=== PATIENT | female | born 1945 | race Caucasian/White ===

== ENCOUNTER 2018-02-05 06:36 | Observation (INO) ==
--- NOTE | 2018-02-05 07:15 | Emergency Department Note ---
Disposition Clinical Impression: Bronchitis, COPD exacerbation, Hypoxia Disposition: Admitted As Inpatient Condition: Fair Referrals: Ashly Kitchen DO [Primary Care Provider] - Forms: ED Satisfaction Letter Time of Disposition: 08:35 General Adult HPI - General Chief complaint: ED Upper Respiratory Infection Stated complaint: cough/sore throat Time Seen by Provider: 02/05/18 06:58 Source: patient Limitations: no limitations Nursing Notes Reviewed: Yes Vital Signs Reviewed: Yes - History of Present Illness HPI Narrative: 72-year-old female history of COPD and diabetes presents an emergency department for cough and sore throat. The symptoms started last night. She stated she was taken her nighttime pills when she coughed and one accidentally went up her nose. She was able to get this out. Since then she has noticed a scratchy voice. She checked her O2 and it was reportedly 65%. She does report a cough for the past few days as well. She denies any shortness of breath or chest pain at this time. She denies any fever or chills. On arrival here she was found to be hypoxic but after having her settle down she is had a good waveform 95%. She does not wear any home oxygen supplementation at home. She does report to some muscle aches. She denies any abdominal pain nausea or vomiting. History of cholecystectomy. Denies history of cardiac ischemic disease. She did have recent dental procedure in November for her bottom teeth. Otherwise unremarkable. Given some of her complaints will get a chest x -ray EKG basic labs with the troponin and check for influenza. Patient is in agreement with this plan. Pain Scale: 10 - Related Data Home Medications Medication Instructions Recorded Confirmed Amitriptyline [Elavil] 50 mg PO HS 10/13/15 10/13/15 Ammonium Lactate [Lac-Hydrin Five] 113 gm TP BID 10/13/15 10/13/15 Atorvastatin Calcium [Lipitor] 20 mg PO DAILY 10/13/15 10/13/15 Diclofenac Sodium [Voltaren] 50 mg PO BID 10/13/15 10/13/15 Ibuprofen [Motrin] 600 mg PO Q8HR PRN 10/13/15 10/13/15 Irbesartan [Avapro] 300 mg PO DAILY 10/13/15 10/13/15 Levothyroxine Sodium [Synthroid] 25 mcg PO DAILY 10/13/15 10/13/15 Metformin HCl [Fortamet] 500 mg PO BID 10/13/15 10/13/15 Methocarbamol [Robaxin] 500 mg PO Q8HR 10/13/15 10/13/15 Metoprolol [Lopressor] 50 mg PO BID 10/13/15 10/13/15 Montelukast [Singulair] 10 mg PO HS 10/13/15 10/13/15 Potassium Chloride [Klor-Con 10 meq PO DAILY 10/13/15 10/13/15 Sprinkle] Promethazine [Phenergan] 25 mg PO DAILY PRN 10/13/15 10/13/15 Sennosides [Senna] 8.6 mg PO DAILY PRN 10/13/15 10/13/15 Tramadol HCl [Tramadol HCl ER] 50 mg PO Q6H PRN 10/13/15 10/13/15 Venlafaxine HCl [Effexor Xr] 150 mg PO DAILY 10/13/15 10/13/15 amLODIPine [Norvasc] 5 mg PO DAILY 10/13/15 10/13/15 glipiZIDE [Glucotrol] 5 mg PO DAILY 10/13/15 10/13/15 Previous Rx's Medication Instructions Recorded Albuterol Sulfate [Albuterol 2 puff IH Q4HR #1 hfa.aer.ad 10/13/15 Inhaler] Lisinopril-HCTZ 10-12.5 [Prinzide 1 each PO DAILY #30 tablet 10/13/15 10-12.5] levoFLOXacin [Levaquin] 500 mg PO DAILY #5 tablet 10/13/15 predniSONE [PredniSONE] 10 mg PO DAILY #7 tablet 10/13/15 HYDROcodone/Acet 5/325 mg [[place] 1 tab PO Q6H PRN #12 tab 11/13/16 5-325 mg] Tizanidine HCl [Zanaflex] 4 mg PO TID #30 cap 11/13/16 predniSONE [PredniSONE] 20 mg PO TID #15 tablet 11/13/16 Amoxicillin 875 mg PO BID #14 tablet 11/30/17 HYDROcodone/Acet 5/325 mg [[place] 1 tab PO Q8HR PRN 2 Days #6 tab 11/30/17 5-325 mg] Tizanidine HCl 2 mg PO TID PRN #10 tablet 11/30/17 Allergies Allergy/AdvReac Type Severity Reaction Status Date / Time morphine Allergy Hives Verified 02/05/18 06:49 All systems ED: reviewed and negative except as stated. Constitutional: Denies: fever, chills ENT ED: Denies: congestion Cardiovascular: Denies: chest pain, dyspnea on exertion Respiratory: Reports: cough. Denies: dyspnea Gastrointestinal: Denies: abdominal pain, nausea, vomiting Genitourinary: Denies: urgency, dysuria Musculoskeletal: Reports: myalgia. Denies: back pain, neck pain Integumentary: Denies: rash, abrasion Neurological: Denies: headache, weakness Past Medical History - Past Medical History Attestation: Yes The following information was validated with the patient. Source: patient Medical history: Reports: diabetes, hypertension, other Surgical history: Reports: appendectomy, cholecystectomy, hysterectomy Psychiatric history: Reports: no psych history [employer] history: Reports: non-contributory - Social History Smoking Status: Never smoker Smokeless Tobacco Status: No Alcohol use: Reports: none Drug use: Reports: none Physical Exam - General Limitations: no limitations General appearance: alert, in no apparent distress - Head Head exam: atraumatic, normocephalic, normal inspection - Eye Eye exam: Present: normal appearance, PERRL, EOMI - ENT ENT exam: normal exam, normal oropharynx, mucous membranes moist - Expanded ENT Exam Nose exam: negative: rhinorrhea, sinus tenderness Mouth exam: Present: normal external inspection, tongue normal. Absent: tongue elevation, tounge swelling Teeth exam: Present: other (edentulous) Throat exam: Present: normal inspection. Absent: tonsillar erythema, tonsillar exudate, muffled voice - Neck Neck exam: Present: normal inspection, full ROM, trachea midline. Absent: tenderness, meningismus - Expanded Neck Exam Neck exam focused ED: Absent: midline tenderness - Chest Chest inspection: Present: normal inspection, symmetric chest wall rise. Absent : tenderness - Respiratory Respiratory exam: Present: normal lung sounds bilaterally, wheezes. Absent: respiratory distress - Expanded Respiratory Exam Location: decreased breath sounds: Lower - Cardiovascular Cardiovascular exam: Present: regular rate, normal rhythm, normal heart sounds - Abdominal Exam Abdominal exam: Present: soft, Non-Tender, normal bowel sounds, scar (RUQ from cholecystectomy). Absent: tenderness, distention, guarding, rebound, rigidity - Extremities Exam Extremities exam: Present: normal inspection, full ROM, normal capillary refill. Absent: tenderness, pedal edema - Back Exam Back exam: Present: normal inspection, full ROM. Absent: CVA tenderness (R), CVA tenderness (L) - Neurological Exam Neurological exam: Present: alert, oriented X3 - Psychiatric Psychiatric exam: Present: normal affect, normal mood - Skin Skin exam: Present: warm, dry, intact, normal color. Absent: rash, cyanosis, diaphoresis Course Course Narrative: Chest x-ray confirms bronchitis. She does have a leukocytosis of 18. She has maintained good oxygen saturation 91 to 93% on room air here in the department. Other labs or otherwise unremarkable, troponin <0.03. She is slightly hyperglycemic. We had the patient ambulate throughout the department and she maintained 91% however she states feeling woozy and a little winded. Given the symptoms patient will be admitted for hypoxia and COPD exacerbation. Will give her a dose of Solu-Medrol and start her on Levaquin. - Consultations Consultation #1: Spoke with on-call hospitalist minna Keen to admit for COPD exacerbation and hypoxia. No further orders at this time Time: 08:37 Vital Signs Temperature 100.2 F H 02/05/18 06:49 Pulse Rate 94 02/05/18 06:49 Respiratory Rate 16 02/05/18 06:49 Blood Pressure 170/101 02/05/18 06:49 O2 Sat by Pulse Oximetry 87 02/05/18 06:49 Temperature 100.2 F H 02/05/18 06:49 Pulse Rate 91 02/05/18 07:49 Respiratory Rate 15 02/05/18 07:49 Blood Pressure 132/107 02/05/18 07:55 O2 Sat by Pulse Oximetry 92 02/05/18 07:55 Oxygen Delivery Oxygen Delivery Room Air Medical Decision Making - MDM Narrative Medical decision making narrative: Patient was discussed with my attending physician who agrees with ED management and final disposition. They independently evaluated the patient. Please refer to their attestation to this encounter for additional information. This note was generated by [employer] voice recognition software and as a result grammatical or spelling errors may occur using this program. - Medical Records Medical records reviewed: Yes I reviewed the patient's medical records. - Lab Data Lab results reviewed: Yes I reviewed the patient's lab results. Result diagrams: 02/05/18 06:58 02/05/18 06:58 Lab Results 02/05/18 02/05/18 02/05/18 Range/Units 06:58 06:58 06:58 WBC 18.6 H (4.3-11.1) K/mcL RBC 4.97 (3.82-4.97) M/mcL Hgb 14.1 (11.5-15.4) g/dL Hct 42.7 (35.3-44.9) % MCV 85.9 (83.0-100.0) fL MCH 28.4 (28.0-33.3) pg MCHC 33.0 (31.6-35.5) g/dL RDW 13.7 (11.5-14.5) % Plt Count 276 (140-400) K/mcL MPV 10.3 (9.4-12.4) fL Immature Gran % 0.4 (0-4) % Seg Neutrophils % 82.1 % Lymphocytes % 7.2 % Monocytes % 7.5 % Eosinophils % 2.6 % Basophils % 0.2 % Neutrophils # 15.3 H (1.6-8.9) K/mcL Lymphocytes # 1.3 (0.6-4.6) K/mcL Monocytes # 1.4 H (0.0-1.3) K/mcL Eosinophils # 0.5 (0.0-0.6) K/mcL Basophils # 0.0 (0.0-0.2) K/mcL Sodium 135 L (136-145) mEq/L Potassium 4.0 (3.5-5.1) mEq/L Chloride 98 (98-107) mEq/L Carbon Dioxide 28 (23-29) mEq/L BUN 13 (8-23) mg/dL Creatinine 1.13 (0.60-1.20) mg/dL Est GFR ( Amer) 58 L (> 60) Est GFR (Non-Af Amer) 48 L (> 60) BUN/Creatinine Ratio 12 (6-26) Glucose 177 H (70-105) mg/dL Calculated Osmolality 284 (280-300) Calcium 10.3 (8.6-10.3) mg/dL Troponin I < 0.03 (< 0.04) ng/mL B-Natriuretic Peptide 217 H (Less than 100) pg/mL - Radiology Data Radiology results reviewed: Yes I reviewed the patient's radiology results. Chest X-Ray 02/05/18 07:16 IMPRESSION: Increased interstitial opacities and bronchial wall thickening compatible with bronchitis. D/ / Marco Murray MD / Marco Murray MD Interpreting Provider: Marco Murray MD - EKG Data EKG #1 EKG attestation: Yes I reviewed and interpreted this EKG. EKG results narrative: EKG performed 0657 normal sinus rhythm 89 bpm, normal axis, good R wave progression, nonspecific ST T-wave changes, intervals within normal limits. No acute ischemic changes. Attestation Statement - Attestation Attestation: I, Alverto Bauer DO, examined this patient [id number] and my medical decision-making was reviewed with Adonay Kaiser DO , Resident Physician. I agree with the documented findings, disposition and treatment plan as described except to the extent set forth below. Please see my progress notes for details.
[2018-02-05] MEDS ORDERED: Ipratropium/Albuterol Neb 3 ML IH ONE (07:16)
[2018-02-05 07:37] LABS: Basophils % 0.2 %; Eosinophils # 0.5 K/mcL (0.0-0.6); Eosinophils % 2.6 %; Hematocrit 42.7 % (35.3-44.9); Hemoglobin 14.1 g/dL (11.5-15.4); Immature Granulocytes % 0.4 % (0-4); Lymphocytes # 1.3 K/mcL (0.6-4.6); Lymphocytes % 7.2 %; Mean Corpuscular Hemoglobin 28.4 pg (28.0-33.3); Mean Corpuscular Volume 85.9 fL (83.0-100.0); Mean Platelet Volume 10.3 fL (9.4-12.4); Monocytes # 1.4 K/mcL (0.0-1.3); Monocytes % 7.5 %; Neutrophils # 15.3 K/mcL (1.6-8.9); Platelet Count 276 K/mcL (140-400); Red Blood Count 4.97 M/mcL (3.82-4.97); Red Cell Distribution Width 13.7 % (11.5-14.5); Segmented Neutrophils % 82.1 %
--- NOTE | 2018-02-05 07:39 | Emergency Department Note ---
Disposition Clinical Impression: Bronchitis, COPD exacerbation, Hypoxia Disposition: Admitted As Inpatient Condition: Fair Referrals: Ashly Kitchen DO [Primary Care Provider] - Forms: ED Satisfaction Letter Time of Disposition: 08:34 General Adult HPI - General Chief complaint: ED Upper Respiratory Infection Stated complaint: cough/sore throat Time Seen by Provider: 02/05/18 06:58 Source: patient Limitations: no limitations - History of Present Illness Pain Scale: 10 - Related Data Home Medications Medication Instructions Recorded Confirmed Amitriptyline [Elavil] 50 mg PO HS 10/13/15 10/13/15 Ammonium Lactate [Lac-Hydrin Five] 113 gm TP BID 10/13/15 10/13/15 Atorvastatin Calcium [Lipitor] 20 mg PO DAILY 10/13/15 10/13/15 Diclofenac Sodium [Voltaren] 50 mg PO BID 10/13/15 10/13/15 Ibuprofen [Motrin] 600 mg PO Q8HR PRN 10/13/15 10/13/15 Irbesartan [Avapro] 300 mg PO DAILY 10/13/15 10/13/15 Levothyroxine Sodium [Synthroid] 25 mcg PO DAILY 10/13/15 10/13/15 Metformin HCl [Fortamet] 500 mg PO BID 10/13/15 10/13/15 Methocarbamol [Robaxin] 500 mg PO Q8HR 10/13/15 10/13/15 Metoprolol [Lopressor] 50 mg PO BID 10/13/15 10/13/15 Montelukast [Singulair] 10 mg PO HS 10/13/15 10/13/15 Potassium Chloride [Klor-Con 10 meq PO DAILY 10/13/15 10/13/15 Sprinkle] Promethazine [Phenergan] 25 mg PO DAILY PRN 10/13/15 10/13/15 Sennosides [Senna] 8.6 mg PO DAILY PRN 10/13/15 10/13/15 Tramadol HCl [Tramadol HCl ER] 50 mg PO Q6H PRN 10/13/15 10/13/15 Venlafaxine HCl [Effexor Xr] 150 mg PO DAILY 10/13/15 10/13/15 amLODIPine [Norvasc] 5 mg PO DAILY 10/13/15 10/13/15 glipiZIDE [Glucotrol] 5 mg PO DAILY 10/13/15 10/13/15 Previous Rx's Medication Instructions Recorded Albuterol Sulfate [Albuterol 2 puff IH Q4HR #1 hfa.aer.ad 10/13/15 Inhaler] Lisinopril-HCTZ 10-12.5 [Prinzide 1 each PO DAILY #30 tablet 10/13/15 10-12.5] levoFLOXacin [Levaquin] 500 mg PO DAILY #5 tablet 10/13/15 predniSONE [PredniSONE] 10 mg PO DAILY #7 tablet 10/13/15 HYDROcodone/Acet 5/325 mg [[place] 1 tab PO Q6H PRN #12 tab 11/13/16 5-325 mg] Tizanidine HCl [Zanaflex] 4 mg PO TID #30 cap 11/13/16 predniSONE [PredniSONE] 20 mg PO TID #15 tablet 11/13/16 Amoxicillin 875 mg PO BID #14 tablet 11/30/17 HYDROcodone/Acet 5/325 mg [[place] 1 tab PO Q8HR PRN 2 Days #6 tab 11/30/17 5-325 mg] Tizanidine HCl 2 mg PO TID PRN #10 tablet 11/30/17 Allergies Allergy/AdvReac Type Severity Reaction Status Date / Time morphine Allergy Hives Verified 02/05/18 06:49 Constitutional: Denies: fever, chills ENT ED: Denies: congestion Cardiovascular: Denies: chest pain, dyspnea on exertion Respiratory: Reports: cough. Denies: dyspnea Gastrointestinal: Denies: abdominal pain, nausea, vomiting Genitourinary: Denies: urgency, dysuria Musculoskeletal: Reports: myalgia. Denies: back pain, neck pain Integumentary: Denies: rash, abrasion Neurological: Denies: headache, weakness Past Medical History - Past Medical History Medical history: Reports: diabetes, hypertension, other Surgical history: Reports: appendectomy, cholecystectomy, hysterectomy Psychiatric history: Reports: no psych history [employer] history: Reports: non-contributory - Social History Smoking Status: Never smoker Smokeless Tobacco Status: No Alcohol use: Reports: none Drug use: Reports: none Physical Exam - General Limitations: no limitations General appearance: alert, in no apparent distress Course Vital Signs Temperature 100.2 F H 02/05/18 06:49 Pulse Rate 94 02/05/18 06:49 Respiratory Rate 16 04/25/18 06:49 Blood Pressure 170/101 02/05/18 06:49 O2 Sat by Pulse Oximetry 87 02/05/18 06:49 Temperature 100.2 F H 02/05/18 06:49 Pulse Rate 91 02/05/18 07:49 Respiratory Rate 15 02/05/18 07:49 Blood Pressure 132/107 02/05/18 07:55 O2 Sat by Pulse Oximetry 92 02/05/18 07:55 Oxygen Delivery Oxygen Delivery Room Air Medical Decision Making - Lab Data Result diagrams: 02/05/18 06:58 02/05/18 06:58 Lab Results 02/05/18 02/05/18 02/05/18 Range/Units 06:58 06:58 06:58 WBC 18.6 H (4.3-11.1) K/mcL RBC 4.97 (3.82-4.97) M/mcL Hgb 14.1 (11.5-15.4) g/dL Hct 42.7 (35.3-44.9) % MCV 85.9 (83.0-100.0) fL MCH 28.4 (28.0-33.3) pg MCHC 33.0 (31.6-35.5) g/dL RDW 13.7 (11.5-14.5) % Plt Count 276 (140-400) K/mcL MPV 10.3 (9.4-12.4) fL Immature Gran % 0.4 (0-4) % Seg Neutrophils % 82.1 % Lymphocytes % 7.2 % Monocytes % 7.5 % Eosinophils % 2.6 % Basophils % 0.2 % Neutrophils # 15.3 H (1.6-8.9) K/mcL Lymphocytes # 1.3 (0.6-4.6) K/mcL Monocytes # 1.4 H (0.0-1.3) K/mcL Eosinophils # 0.5 (0.0-0.6) K/mcL Basophils # 0.0 (0.0-0.2) K/mcL Sodium 135 L (136-145) mEq/L Potassium 4.0 (3.5-5.1) mEq/L Chloride 98 (98-107) mEq/L Carbon Dioxide 28 (23-29) mEq/L BUN 13 (8-23) mg/dL Creatinine 1.13 (0.60-1.20) mg/dL Est GFR ( Amer) 58 L (> 60) Est GFR (Non-Af Amer) 48 L (> 60) BUN/Creatinine Ratio 12 (6-26) Glucose 177 H (70-105) mg/dL Calculated Osmolality 284 (280-300) Calcium 10.3 (8.6-10.3) mg/dL Troponin I < 0.03 (< 0.04) ng/mL B-Natriuretic Peptide 217 H (Less than 100) pg/mL Attestation Statement - Attestation Attestation: I, Alverto Bauer DO, examined this patient [id number] and my medical decision-making was reviewed with Adonay Kaiser DO , Resident Physician. I agree with the documented findings, disposition and treatment plan as described except to the extent set forth below. Please see my progress notes for details. 72-year-old female presents to emergency room with concern of sore throat and pain with swallowing after trying to take a pill last night. Patient was swallowing a medication. The medication got caught in Her throat and then when she coughed she felt to go up into her nose and it came out of her nostril. Patient denies any active chest pain shortness of breath headache vision changes nausea vomiting or diarrhea. Denies any fevers or chills. Patient otherwise is resting comfortably in the bed. Patient has known COPD but does not require any oxygen. She only uses breathing treatments and inhalers at home as she needs them. Patient denies any recent travel or illness. Denies any fevers or chills cough, congestion headache or vision changes home. She discloses that she would have never come in to the emergency room she did not have the sore throat after choking on the pill last night. Patient does not have any signs of stridor or trismus. She does not have any difficulty with swallowing. Her oropharynx is patent. Trachea is midline. Lungs are clear heart is regular. Abdomen is soft. She has no pitting edema or swelling. Patient's pulse ox is been 95% on room air with good waveform throughout the entire treatment course. Patient did disclose that she had a low pulse ox at home in the 60s with this is typical for her. She denies any respiratory distress or issues this time. Initial vital signs do show borderline temperature of 100.2. Her heart rate and respirations are normal. Blood pressure is elevated but otherwise stable. Patient will have influenza swab chest x-ray EKG labs including CBC chemistry troponin and BNP collected at this time. Patient does feel comfortable going home at this point considering she feels legates only the sore throat we will check for any other potential infectious etiology. Influenza swab is pending. Disposition pending the full workup and treatment course. Patient will be ambulated prior to going home. Clinically the patient does appear to be stable and in no apparent distress at this time. Disposition pending. See detailed documentation of the physical exam, medical intervention, medical decision-making and disposition the resident physician's note. No critical care applied his first treatment course this time. 0800 Patient's influenza swab is negative this time. She does have a leukocytosis. She also has confirmed bronchitis based on chest x-ray. Patient may have irritated the throat was no signs of pneumomediastinum or concern for esophageal rupture or tear. Patient has no crepitus or injury to the anterior chest wall she has no pain with swallowing at this point. Patient has been tolerating fluids without any difficulty. Patient is still requesting to be discharged home. We will ambulate around the emergency room at this time and then discuss disposition. 0830 Patient ambulate around the emergency room with a pulse ox of 91%. She was shaky and felt short of breath with the event. After this lengthy discussion was had about her concerns with her presentation despite being bronchitis with a mild COPD exacerbation. Patient will be admitted at this time for symptomatic control. She does have known bronchitis with an elevated white blood cell count and a borderline temperature. She does not meet sepsis criteria and has not required any fluid resuscitation this time. Patient will be admitted for definitive management. Antibiotics and blood cultures will be started at this point on a steroid resuscitation. Hospitalist nurse practitioner Darby Fiore reviewed the case and no other recommendations at this time.
[2018-02-05 07:50] LABS: BUN/Creatinine Ratio 12 (6-26); Blood Urea Nitrogen 13 mg/dL (8-23); Calcium 10.3 mg/dL (8.6-10.3); Carbon Dioxide 28 mEq/L (23-29); Chloride 98 mEq/L (98-107); Glucose 177 mg/dL (70-105); Osmolality,Calculated 284 (280-300); Sodium 135 mEq/L (136-145); eGFR For African Americans 58 (> 60); eGFR For Non-African Americans 48 (> 60)
[2018-02-05 07:51] LABS: Troponin I < 0.03 ng/mL (< 0.04)
[2018-02-05] MEDS ORDERED: methylPREDNISolone 125 MG/2 ML VIAL IVP ONE (08:28)
[2018-02-05] MEDS ORDERED: Levofloxacin 750 MG/150 ML 750 MG/150 ML BAG IVPB ONE (08:31)
[2018-02-05] MEDS ORDERED: hydrOXYzine pamoate 25 MG CAPSULE PO PRN (11:34)
[2018-02-05] MEDS ORDERED: D5% in Water 1,000 ML IVC PRN (11:37)
[2018-02-05] MEDS ORDERED: Dextrose Gel 15 GM/37.5 ML TUBE PO PRN ×2 (11:37)
[2018-02-05] MEDS ORDERED: *HR* Dextrose 50 % in Water (Syg) 50 ML SYRINGE IVP PRN (11:37)
[2018-02-05] MEDS ORDERED: Naloxone 0.4 MG/ML INJ IVP PRN (11:38)
[2018-02-05] MEDS ORDERED: traMADol 50 MG TABLET PO PRN (11:38)
[2018-02-05] MEDS ORDERED: Acetaminophen 325 MG TABLET PO PRN (11:38)
--- NOTE | 2018-02-05 11:48 | Internal Med History&Physical ---
<Darleen Arroyo - Last Filed: 02/05/18 12:18> Date of Encounter: 02/05/18 Time of Encounter: 11:43 Internal Medicine - H&P: HPI Admitted From: Home Plans for Post Hospital Care: Home History of present illness: 72-year-old female presents to emergency room with concern of sore throat and pain with swallowing after trying to take a pill last night. Patient was swallowing a medication. The medication got caught in Her throat and then when she coughed she felt to go up into her nose and it came out of her nostril. Patient denies any active chest pain shortness of breath headache vision changes nausea vomiting or diarrhea. Denies any fevers or chills. Patient otherwise is resting comfortably in the bed. Patient has known COPD but does not require any oxygen. She only uses breathing treatments and inhalers at home as she needs them. Patient denies any recent travel or illness. Denies any fevers or chills cough, congestion headache or vision changes home. She discloses that she would have never come in to the emergency room she did not have the sore throat after choking on the pill last night. Patient does not have any signs of stridor or trismus. She does not have any difficulty with swallowing. Her oropharynx is patent. Trachea is midline. Lungs are clear heart is regular. Abdomen is soft. She has no pitting edema or swelling. Patient's pulse ox is been 95% on room air with good waveform throughout the entire treatment course. Patient did disclose that she had a low pulse ox at home in the 60s with this is typical for her. She denies any respiratory distress or issues this time. Initial vital signs do show borderline temperature of 100.2. Her heart rate and respirations are normal. Blood pressure is elevated but otherwise stable. Patient will have influenza swab chest x-ray EKG labs including CBC chemistry troponin and BNP collected at this time. Patient does feel comfortable going home at this point considering she feels legates only the sore throat we will check for any other potential infectious etiology. At the ED, she was found to have temperature 100.2, EKG no acute changes, chest x-ray revealed possible bronchitis. Due to her severe respiratory symptoms, she will be admitted as observation for further management. Past Med Surg Social Fam HX - Past Medical History Medical history: diabetes, hypertension, other Psychiatric history: no psych history - Past Surgical History Surgical History: appendectomy, cholecystectomy, hysterectomy - Social History Smoking Status: Never smoker Smokeless Tobacco Status: No Alcohol use: none Drug use: none - Family History Mother Adopted: Yes Living Status: Father Adopted: Yes Living Status: Internal Medicine - H&P: Meds Albuterol Sulfate [Albuterol Inhaler] 2 puff IH Q4HR #1 hfa.aer.ad 10/13/15 [Rx] Amitriptyline [Elavil] 50 mg PO HS 10/13/15 [History] Ammonium Lactate [Lac-Hydrin Five] 113 gm TP BID 10/13/15 [History] Atorvastatin Calcium [Lipitor] 20 mg PO DAILY 10/13/15 [History] Irbesartan [Avapro] 300 mg PO DAILY 10/13/15 [History] Levothyroxine Sodium [Synthroid] 25 mcg PO DAILY 10/13/15 [History] Metoprolol [Lopressor] 50 mg PO BID 10/13/15 [History] Montelukast [Singulair] 10 mg PO HS 10/13/15 [History] Potassium Chloride [Klor-Con Sprinkle] 10 meq PO DAILY 10/13/15 [History] Promethazine [Phenergan] 25 mg PO DAILY PRN 10/13/15 [History] amLODIPine [Norvasc] 5 mg PO DAILY 10/13/15 [History] glipiZIDE [Glucotrol] 5 mg PO DAILY 10/13/15 [History] BuPROPion SR (12 HR) [Wellbutrin SR] 150 mg PO BID 02/05/18 [History] Omeprazole [PriLOSEC] 20 mg PO DAILY 02/05/18 [History] hydrOXYzine HCl [Hydroxyzine HCl] 25 mg PO HS PRN 02/05/18 [History] 3 Allergy/AdvReac Type Severity Reaction Status Date / Time morphine Allergy Hives Verified 02/05/18 06:49 All Systems PM: A 10-system review of systems was performed and is negative for pertinent findings except as documented above in the HPI. Review of systems: REVIEW OF SYSTEMS: CONSTITUTIONAL: No weight loss, fever, chills, weakness or fatigue. HEENT: Eyes: No visual loss, blurred vision, double vision or yellow sclerae. Ears, Nose, Throat: No hearing loss, sneezing, congestion, runny nose or sore throat. SKIN: No rash or itching. CARDIOVASCULAR: No chest pain, chest pressure or chest discomfort. No palpitations or edema. RESPIRATORY: No shortness of breath, cough or sputum. GASTROINTESTINAL: No anorexia, nausea, vomiting or diarrhea. No abdominal pain or blood. GENITOURINARY: No dysuria, urgency, or frequency. NEUROLOGICAL: No headache, dizziness, syncope, paralysis, ataxia, numbness or tingling in the extremities. No change in bowel or bladder control. MUSCULOSKELETAL: No muscle, back pain, joint pain or stiffness. HEMATOLOGIC: No anemia, bleeding or bruising. LYMPHATICS: No enlarged nodes. No history of splenectomy. PSYCHIATRIC: No history of depression or anxiety. ENDOCRINOLOGIC: No reports of sweating, cold or heat intolerance. No polyuria or polydipsia. - Constitutional Vitals: Temp Pulse Resp BP Pulse Ox 100.2 F H 92 15 163/112 90 02/05/18 06:49 02/05/18 11:14 02/05/18 11:14 02/05/18 11:14 02/05/18 11:14 General appearance: Present: A&O X 3 Exam: PHYSICAL EXAMINATION: GENERAL APPEARANCE: The patient is alert, oriented and in no acute distress. HEENT: Head is normocephalic. The sinuses are nontender. Pupils are equal and reactive. The nares are patent. Oropharynx clear without lesions. NECK: Supple without lymphadenopathy. HEART: Regular rate and rhythm. LUNGS: No crackles or wheezes are heard. ABDOMEN: Soft, nontender, nondistended with good bowel sounds heard. Inguinal area is normal. EXTREMITIES: Without cyanosis, clubbing or edema. NEUROLOGICAL: Gross nonfocal. SKIN: Warm and dry without any rash. Internal Med - H&P Results - Labs CBC & Chem 7: 02/05/18 06:58 02/05/18 06:58 - Assessment and plan (1) Bronchitis Current Visit: Yes Status: Acute Assessment and plan: - Temperature 100.2, Elevated WBC, Chest x-ray revealed acute bronchitis, were treated as acute bronchitis, possible pneumonia with IV Levaquin. - Blood culture and sputum culture ordered. (2) COPD exacerbation Current Visit: Yes Status: Acute Assessment and plan: Mild respiratory distress, she received 1 dose of Solu-Medrol at ED, we will continue oral prednisone, respiratory treatment as needed. (3) Diabetes mellitus Current Visit: No Status: Chronic Assessment and plan: - Her home medication, started insulin sliding scale of medium strength. Qualifiers: Diabetes mellitus type: type 2 Diabetes mellitus complication status: with kidney complications Diabetes mellitus complication detail: with chronic kidney disease Chronic kidney disease stage: stage 3 (moderate) Qualified Code(s): E11.22 - Type 2 diabetes mellitus with diabetic chronic kidney disease ; N18.3 - Chronic kidney disease, stage 3 (moderate); N18.3 - Chronic kidney disease, stage 3 (moderate); Z79.4 - senior living (current) use of insulin; Z79.4 - intermediate accountant (current) use of insulin; Z79.4 - senior living (current) use of insulin ; Z79.4 - intermediate accountant (current) use of insulin (4) Accelerated essential hypertension Current Visit: No Status: Chronic Assessment and plan: - BP controlled at this time, continue home medication. (5) Elevated brain natriuretic peptide (BNP) level Current Visit: Yes Status: Acute Assessment and plan: - No history of CHF, BNP 217, will order echocardiogram to rule out CHF/ pulmonary hypertension. - Time Spent With Patient Total time spent is greater than 50% in coordination of care (as documented) at patient's floor/unit and/or counseling patient: Greater than 35 minutes <Kirstin Keller - Last Filed: 02/05/18 12:32> Date of Encounter: 02/05/18 Internal Medicine - H&P: HPI History of present illness: Ms. Daniels is a 72 year old female All Systems PM: A 10-system review of systems was performed and is negative for pertinent findings except as documented above in the HPI. - Constitutional Vitals: Temp Pulse Resp BP Pulse Ox 98.4 F 81 18 150/123 89 02/05/18 12:03 02/05/18 12:03 02/05/18 12:03 02/05/18 12:03 02/05/18 12:03 Internal Med - H&P Results - Labs CBC & Chem 7: 02/05/18 06:58 02/05/18 06:58 - Attending Attestation Patient examined. Review of the note of mid-level provider and agreed with the plan of care. Patient has chronic cough or almost 1 month but recently it got worse and started fever and chills with fatigue and shortness of breath and patient checked her pulse ox and found to have oxygen saturation in higher 60s therefore decided to come to emergency room. Patient denies any history of CHF and no cardiac workup done in the past. BNP is raised therefore echocardiogram was done to rule out underlying pulmonary hypertension, cor pulmonale, CHF. ABG ordered. Patient denies recent travel or trauma. - Assessment and plan (1) COPD exacerbation Current Visit: Yes Status: Acute (2) Diabetes mellitus Current Visit: No Status: Chronic Qualifiers: Diabetes mellitus type: type 2 Diabetes mellitus complication status: with kidney complications Diabetes mellitus complication detail: with chronic kidney disease Chronic kidney disease stage: stage 3 (moderate) Qualified Code(s): E11.22 - Type 2 diabetes mellitus with diabetic chronic kidney disease ; N18.3 - Chronic kidney disease, stage 3 (moderate); N18.3 - Chronic kidney disease, stage 3 (moderate); Z79.4 - intermediate accountant (current) use of insulin; Z79.4 - intermediate accountant (current) use of insulin; Z79.4 - senior living (current) use of insulin ; Z79.4 - senior living (current) use of insulin (3) Accelerated essential hypertension Current Visit: No Status: Chronic (4) Bronchitis Current Visit: Yes Status: Acute (5) Elevated brain natriuretic peptide (BNP) level Current Visit: Yes Status: Acute - Time Spent With Patient Total time spent is greater than 50% in coordination of care (as documented) at patient's floor/unit and/or counseling patient:
[2018-02-05] MEDS ORDERED: Ipratropium/Albuterol Neb 3 ML IH PRN (11:56)
[2018-02-05] MEDS: Insulin LISPRO 300 UNITS/3 ML VIAL SQ SCH ×4 (13:26→21:20)
[2018-02-05] MEDS: *HR* Heparin 5,000 UNIT/ML VIAL SQ SCH ×2 (13:59→17:48)
[2018-02-05] MEDS: MethylPREDNISolone 40 MG/ML VIAL IVP SCH (17:44)
[2018-02-05] MEDS: BuPROPion SR (12 HR) 150 MG TABLET PO SCH (21:17)
[2018-02-05] MEDS: Ammonium Lactate 30 APPL/225 GM BOTTLE TP SCH (21:22)
[2018-02-06] MEDS: MethylPREDNISolone 40 MG/ML VIAL IVP SCH ×3 (00:58→16:46)
[2018-02-06 03:36] LABS: Basophils % 0.1 %; Hematocrit 38.9 % (35.3-44.9); Hemoglobin 13.2 g/dL (11.5-15.4); Lymphocytes # 0.9 K/mcL (0.6-4.6); Lymphocytes % 6.4 %; Mean Corpuscular HGB Conc 33.9 g/dL (31.6-35.5); Mean Corpuscular Hemoglobin 28.9 pg (28.0-33.3); Mean Corpuscular Volume 85.3 fL (83.0-100.0); Mean Platelet Volume 9.6 fL (9.4-12.4); Monocytes # 0.5 K/mcL (0.0-1.3); Monocytes % 3.5 %; Nucleated Red Blood Cells 0.1 /100 WBC (0); Platelet Count 269 K/mcL (140-400); Red Blood Count 4.56 M/mcL (3.82-4.97); Red Cell Distribution Width 13.9 % (11.5-14.5)
[2018-02-06 04:07] LABS: Calcium 9.8 mg/dL (8.6-10.3); Potassium 4.2 mEq/L (3.5-5.1)
[2018-02-06] MEDS: *HR* Heparin 5,000 UNIT/ML VIAL SQ SCH ×2 (06:30→16:45)
[2018-02-06] MEDS: Levothyroxine 25 MCG TABLET PO SCH (06:31)
[2018-02-06] MEDS: amLODIPine 5 MG TABLET PO SCH (08:55)
[2018-02-06] MEDS: BuPROPion SR (12 HR) 150 MG TABLET PO SCH ×2 (08:55→20:49)
[2018-02-06] MEDS: Levofloxacin 750 MG/150 ML 750 MG/150 ML BAG IVPB SCH (08:55)
[2018-02-06] MEDS: Insulin LISPRO 300 UNITS/3 ML VIAL SQ SCH ×4 (08:59→21:14)
[2018-02-06] MEDS ORDERED: predniSONE 20 MG TABLET PO SCH (09:00)
[2018-02-06] MEDS: Ammonium Lactate 30 APPL/225 GM BOTTLE TP SCH ×2 (09:14→20:49)
--- NOTE | 2018-02-06 19:37 | Internal Med Progress Note ---
Date of Encounter: 02/06/18 Time of Encounter: 11:00 - Assessment and plan (1) COPD exacerbation Current Visit: Yes Status: Acute Assessment and plan: Patient's symptoms improved on IV Solu-Medrol and IV Levaquin Continue current medical management (2) Bronchitis Current Visit: Yes Status: Acute Assessment and plan: Temperature 100.2, Elevated WBC, Chest x-ray revealed acute bronchitis on admission Continue IV Levaquin as above (3) Diabetes mellitus Current Visit: No Status: Chronic Assessment and plan: Continue insulin sliding scale of medium strength. Qualifiers: Diabetes mellitus type: type 2 Diabetes mellitus complication status: with kidney complications Diabetes mellitus complication detail: with chronic kidney disease Chronic kidney disease stage: stage 3 (moderate) Qualified Code(s): E11.22 - Type 2 diabetes mellitus with diabetic chronic kidney disease ; N18.3 - Chronic kidney disease, stage 3 (moderate); N18.3 - Chronic kidney disease, stage 3 (moderate) (4) Accelerated essential hypertension Current Visit: No Status: Chronic Assessment and plan: - BP controlled at this time, continue home medication. (5) DVT prophylaxis Current Visit: No Status: Acute Assessment and plan: Subcutaneous heparin - Time Spent With Patient Total time spent is greater than 50% in coordination of care (as documented) at patient's floor/unit and/or counseling patient: - Subjective Interval history: Patient made it for bronchitis and COPD exacerbation but in no acute respiratory distress on room air this morning - Constitutional Vitals: Temp Pulse Resp BP Pulse Ox 98.8 F 88 14 178/86 93 02/06/18 18:53 02/06/18 18:53 02/06/18 18:53 02/06/18 18:53 02/06/18 18:53 General appearance: Present: A&O X 3, no acute distress - Respiratory Respiratory exam: Present: CTAB. Absent: accessory muscle use, rales, rhonchi, wheezes - Cardiovascular Cardiovascular exam: Present: RRR, +S1, +S2. Absent: diastolic murmur, gallop, rubs, systolic murmur Internal Medicine: Result - Labs CBC & Chem 7: 02/06/18 03:25 02/06/18 03:25 Labs: Short CBC 02/06/18 Range/Units 03:25 WBC 13.5 H (4.3-11.1) K/mcL Hgb 13.2 (11.5-15.4) g/dL Hct 38.9 (35.3-44.9) % Plt Count 269 (140-400) K/mcL Neutrophils # 12.0 H (1.6-8.9) K/mcL BMP 02/06/18 03:25 Sodium 135 L Potassium 4.2 Chloride 102 Carbon Dioxide 25 BUN 21 Creatinine 1.20 Glucose 255 H Calcium 9.8 - Impressions Impressions Echocardiogram 02/05/18 11:36 Impressions: LVEF 70%. Normal LV chamber size and function. Mild concentric left ventricular hypertrophy. Mild left ventricular diastolic dysfunction. Normal right ventricular structure and function. No evidence of pulmonary hypertension. No significant valvular dysfunction. Left Ventricular Wall Motion: Rest Echo Findings All wall segments showed normal motion. Findings: Study Quality * Technically adequate exam. ECG Findings * Normal sinus rhythm. Left Ventricle * LVEF 70%. * Normal LV chamber size and function. * Mild concentric left ventricular hypertrophy. * Mild left ventricular diastolic dysfunction. Right Ventricle * Normal right ventricular structure and function. Left Atrium * Mild to moderately dilated left atrium. Right Atrium * Normal right atrial size. Aortic Valve * Trileaflet aortic valve with normal function. * No aortic regurgitation. * No aortic stenosis. Mitral Valve * Mild mitral annular calcification. * No mitral regurgitation. * No mitral stenosis. Tricuspid Valve * Normal tricuspid valve structure and function. * Trace tricuspid regurgitation. * No evidence of pulmonary hypertension. Pulmonic Valve * Normal pulmonic valve structure and function. * No pulmonic regurgitation. Aorta * Normally sized aortic root. Pericardium * The pericardium appears normal. IVC * Normal IVC dimensions and inspiratory collapse. Pulmonary Artery * Normal visualized portions of the main pulmonary artery. Consult Discharge Plan - Plan Referrals: Ashly Kitchen DO [Primary Care Provider] -
[2018-02-06] MEDS: Miconazole 2% cream 118 GM TUBE TP SCH (22:58)
[2018-02-07] MEDS: MethylPREDNISolone 40 MG/ML VIAL IVP SCH ×3 (00:26→16:17)
[2018-02-07] MEDS: *HR* Heparin 5,000 UNIT/ML VIAL SQ SCH ×2 (05:30→16:17)
[2018-02-07] MEDS: Levothyroxine 25 MCG TABLET PO SCH (05:30)
[2018-02-07] MEDS: Insulin LISPRO 300 UNITS/3 ML VIAL SQ SCH ×4 (07:39→22:12)
[2018-02-07] MEDS: Ammonium Lactate 30 APPL/225 GM BOTTLE TP SCH ×2 (07:40→22:16)
[2018-02-07] MEDS: Miconazole 2% cream 118 GM TUBE TP SCH ×3 (07:40→22:16)
[2018-02-07] MEDS: Levofloxacin 750 MG/150 ML 750 MG/150 ML BAG IVPB SCH (07:40)
[2018-02-07] MEDS: amLODIPine 5 MG TABLET PO SCH (07:41)
[2018-02-07] MEDS: BuPROPion SR (12 HR) 150 MG TABLET PO SCH ×2 (07:42→22:15)
[2018-02-07 11:04] LABS: Calcium 9.4 mg/dL (8.6-10.3)
[2018-02-07 11:12] LABS: Basophils % 0.2 %; Hematocrit 38.4 % (35.3-44.9); Hemoglobin 12.6 g/dL (11.5-15.4); Immature Granulocytes % 1.1 % (0-4); Lymphocytes # 1.1 K/mcL (0.6-4.6); Lymphocytes % 7.4 %; Mean Corpuscular HGB Conc 32.8 g/dL (31.6-35.5); Mean Corpuscular Volume 85.3 fL (83.0-100.0); Mean Platelet Volume 10.2 fL (9.4-12.4); Monocytes # 0.7 K/mcL (0.0-1.3); Monocytes % 4.5 %; Neutrophils # 13.3 K/mcL (1.6-8.9); Platelet Count 302 K/mcL (140-400); Red Cell Distribution Width 14.4 % (11.5-14.5); Segmented Neutrophils % 86.8 %
[2018-02-07] MEDS: GuaiFENesin/Dextromethorphan TABLET PO SCH ×2 (12:43→22:15)
--- NOTE | 2018-02-07 17:24 | Internal Med Progress Note ---
Date of Encounter: 02/07/18 Time of Encounter: 10:00 - Assessment and plan (1) Bronchitis Current Visit: Yes Status: Acute Assessment and plan: Patient afebrile but with continued leukocytosis and with no improvement and nonproductive cough Continue IV Levaquin and have added Mucinex (2) COPD exacerbation Current Visit: Yes Status: Acute Assessment and plan: Secondary to the above Will discontinue IV Solu-Medrol and start patient on oral prednisone Continue IV Levaquin as above (3) Diabetes mellitus Current Visit: No Status: Chronic Assessment and plan: Continue insulin sliding scale of medium strength. Qualifiers: Diabetes mellitus type: type 2 Diabetes mellitus complication status: with kidney complications Diabetes mellitus complication detail: with chronic kidney disease Chronic kidney disease stage: stage 3 (moderate) Qualified Code(s): E11.22 - Type 2 diabetes mellitus with diabetic chronic kidney disease ; N18.3 - Chronic kidney disease, stage 3 (moderate); N18.3 - Chronic kidney disease, stage 3 (moderate) (4) Accelerated essential hypertension Current Visit: No Status: Chronic Assessment and plan: - BP controlled at this time, continue home medication. (5) DVT prophylaxis Current Visit: No Status: Acute Assessment and plan: Subcutaneous heparin - Time Spent With Patient Total time spent is greater than 50% in coordination of care (as documented) at patient's floor/unit and/or counseling patient: - Subjective Interval history: Patient does not feel much better this morning with continued nonproductive cough - Constitutional Vitals: Temp Pulse Resp BP Pulse Ox 97.9 F 89 18 170/94 96 02/07/18 15:45 02/07/18 15:45 02/07/18 16:22 02/07/18 15:45 02/07/18 16:22 General appearance: Present: A&O X 3, no acute distress - Respiratory Respiratory exam: Present: CTAB. Absent: accessory muscle use, rales, rhonchi, wheezes - Cardiovascular Cardiovascular exam: Present: RRR, +S1, +S2. Absent: diastolic murmur, gallop, rubs, systolic murmur Internal Medicine: Result - Labs CBC & Chem 7: 02/07/18 10:34 02/07/18 10:34 Labs: Short CBC 02/07/18 Range/Units 10:34 WBC 15.3 H (4.3-11.1) K/mcL Hgb 12.6 (11.5-15.4) g/dL Hct 38.4 (35.3-44.9) % Plt Count 302 (140-400) K/mcL Neutrophils # 13.3 H (1.6-8.9) K/mcL BMP 02/07/18 10:34 Sodium 136 Potassium 4.0 Chloride 104 Carbon Dioxide 23 BUN 26 H Creatinine 1.39 H Glucose 278 H Calcium 9.4 Consult Discharge Plan - Plan Referrals: Ashly Kitchen DO [Primary Care Provider] -
--- NOTE | 2018-02-07 19:18 | Electrocardiograph Report ---
[place] [id number] Test Date: 2018-02-05 Pat Name: Belinda Daniels Department: 103 Room: [facility] Gender: F [employer]: Tal : 1945 Requested By: Adonay Kaiser Order Number: [id number] Reading MD: Shital Posey Measurements Intervals Maxwell Rate: 89 P: 19 NM: 173 QRS: -3 QRSD: 89 T: 73 QT: 346 QTc: 392 Interpretive Statements SINUS RHYTHM LEFT VENTRICULAR HYPERTROPHY AND ST-T CHANGE [VOLTAGE CRITERIA PLUS ST/T ABNORMALITY] Electronically Signed On 02-07-2018 19:16:19 EDT by Shital Posey
[2018-02-08] MEDS: *HR* Heparin 5,000 UNIT/ML VIAL SQ SCH (05:28)
[2018-02-08] MEDS: Levothyroxine 25 MCG TABLET PO SCH (05:28)
[2018-02-08] MEDS: Ammonium Lactate 30 APPL/225 GM BOTTLE TP SCH (07:56)
[2018-02-08] MEDS: amLODIPine 5 MG TABLET PO SCH (07:56)
[2018-02-08] MEDS: BuPROPion SR (12 HR) 150 MG TABLET PO SCH (07:56)
[2018-02-08] MEDS: GuaiFENesin/Dextromethorphan TABLET PO SCH (07:56)
[2018-02-08] MEDS: Insulin LISPRO 300 UNITS/3 ML VIAL SQ SCH ×2 (07:57→12:01)
[2018-02-08] MEDS: Miconazole 2% cream 118 GM TUBE TP SCH (07:57)
[2018-02-08] MEDS ORDERED: predniSONE 20 MG TABLET PO SCH (09:00)
[2018-02-08 09:19] LABS: Basophils # 0.1 K/mcL (0.0-0.2); Basophils % 0.4 %; Hematocrit 40.2 % (35.3-44.9); Hemoglobin 13.1 g/dL (11.5-15.4); Immature Granulocytes % 1.8 % (0-4); Lymphocytes % 21.3 %; Mean Corpuscular HGB Conc 32.6 g/dL (31.6-35.5); Mean Corpuscular Volume 85.9 fL (83.0-100.0); Mean Platelet Volume 9.8 fL (9.4-12.4); Monocytes # 1.1 K/mcL (0.0-1.3); Monocytes % 7.6 %; Neutrophils # 9.7 K/mcL (1.6-8.9); Platelet Count 311 K/mcL (140-400); Red Blood Count 4.68 M/mcL (3.82-4.97); Red Cell Distribution Width 14.5 % (11.5-14.5); Segmented Neutrophils % 68.9 %
[2018-02-08 09:41] LABS: BUN/Creatinine Ratio 21 (6-26); Blood Urea Nitrogen 23 mg/dL (8-23); Calcium 9.2 mg/dL (8.6-10.3); Carbon Dioxide 24 mEq/L (23-29); Chloride 105 mEq/L (98-107); Glucose 199 mg/dL (70-105); Osmolality,Calculated 293 (280-300); Potassium 3.2 mEq/L (3.5-5.1); Sodium 137 mEq/L (136-145); eGFR For African Americans > 60 (> 60); eGFR For Non-African Americans 51 (> 60)
[2018-02-08 11:38] VITALS: BP 110/47
--- NOTE | 2018-02-08 12:59 | Discharge Summary ---
- NOTES TO OUTPATIENT PROVIDER Notes to Outpatient Provider: none Date of Encounter: 02/08/18 Time of Encounter: 11:00 - Discharge Diagnosis (1) Bronchitis Priority: Primary Status: Acute (2) COPD exacerbation Priority: Primary Status: Acute (3) Diabetes mellitus Priority: Secondary Status: Chronic Qualifiers: Diabetes mellitus type: type 2 Diabetes mellitus complication status: with kidney complications Diabetes mellitus complication detail: with chronic kidney disease Chronic kidney disease stage: unspecified stage Qualified Code(s): E11.22 - Type 2 diabetes mellitus with diabetic chronic kidney disease ; Z79.4 - watermelon harvesting supervisor (current) use of insulin; Z79.4 - snf (current) use of insulin; Z79.4 - snf (current) use of insulin; Z79.4 - snf ( current) use of insulin (4) Accelerated essential hypertension Priority: Secondary Status: Chronic Hospital course: Patient is a 72-year-old female with past medical history significant for diabetes and hypertension who presented to the ER on 02/05/18 due to sore throat and difficulty swallowing medication. Patient reported that while swallowing medication, it got stuck in her throat and when she coughed, it went through her nose and out her nostril. Patient was concerned and decided to come to the ER for evaluation. In the ER, patient was found to have a temperature of 100.2 and chest x-ray revealed suspicion for bronchitis. She was admitted to medical surgical floor for management of COPD exacerbation secondary to bronchitis. During patients hospital stay her symptoms improved with treatment on IV Levaquin and IV Solu-Medrol. Patient will be discharged to continue a 5 day course of prednisone and Levaquin. She will follow up with her primary care provider. - Time Spent with Patient Total time spent providing and/or coordinating discharge services: Less than 30 minutes - Discharge Medications Prescriptions: Levofloxacin [Levaquin] 750 mg PO DAILY #5 tablet Miconazole 2% cream [Remedy Antifungal] 1 appl TP TID #1 tube predniSONE [PredniSONE] 40 mg PO DAILY #10 tablet Home Medications: Albuterol Sulfate [Albuterol Inhaler] 2 puff IH Q4HR #1 hfa.aer.ad 10/13/15 [Rx] Amitriptyline [Elavil] 50 mg PO HS 10/13/15 [History] Ammonium Lactate [Lac-Hydrin Five] 113 gm TP BID 10/13/15 [History] Atorvastatin Calcium [Lipitor] 20 mg PO DAILY 10/13/15 [History] Irbesartan [Avapro] 300 mg PO DAILY 10/13/15 [History] Levothyroxine Sodium [Synthroid] 25 mcg PO DAILY 10/13/15 [History] Metoprolol [Lopressor] 50 mg PO BID 10/13/15 [History] Montelukast [Singulair] 10 mg PO HS 10/13/15 [History] Potassium Chloride [Klor-Con Sprinkle] 10 meq PO DAILY 10/13/15 [History] Promethazine [Phenergan] 25 mg PO DAILY PRN 10/13/15 [History] amLODIPine [Norvasc] 5 mg PO DAILY 10/13/15 [History] glipiZIDE [Glucotrol] 5 mg PO DAILY 10/13/15 [History] BuPROPion SR (12 HR) [Wellbutrin SR] 150 mg PO BID 02/05/18 [History] Omeprazole [PriLOSEC] 20 mg PO DAILY 02/05/18 [History] hydrOXYzine HCl [Hydroxyzine HCl] 25 mg PO HS PRN 02/05/18 [History] Levofloxacin [Levaquin] 750 mg PO DAILY #5 tablet 02/08/18 [Rx] Miconazole 2% cream [Remedy Antifungal] 1 appl TP TID #1 tube 02/08/18 [Rx] predniSONE [PredniSONE] 40 mg PO DAILY #10 tablet 02/08/18 [Rx] Allergies/Adverse Reactions: 3 Allergy/AdvReac Type Severity Reaction Status Date / Time morphine Allergy Hives Verified 02/05/18 06:49 Date of admission: 02/05/18 11:28 Primary care physician: Vance Styles - Constitutional Vitals: Temp Pulse Resp BP Pulse Ox 98.3 F 74 16 110/47 96 02/08/18 11:37 02/08/18 11:37 02/08/18 11:57 02/08/18 11:37 02/08/18 11:57 General appearance: Present: A&O X 3, no acute distress - Respiratory Respiratory exam: Present: CTAB. Absent: accessory muscle use, rales, rhonchi, wheezes - Cardiovascular Cardiovascular exam: Present: RRR, +S1, +S2. Absent: diastolic murmur, gallop, rubs, systolic murmur - Patient Status Disposition: Home, Self-Care Condition: Fair - Discharge Instructions Instructions: Acute Bronchitis (DC), Chronic Obstructive Pulmonary Disease (DC) Follow Up With: Ashly Kitchen DO [Primary Care Provider] -
[2018-02-09] MEDS ORDERED: Levofloxacin 750 MG/150 ML 750 MG/150 ML BAG IVPB SCH (09:00)
== END 2018-02-08 14:35 | disposition home or self-care (01) ==
LOC: EMEROO 06:36 → 2SOUTHHOLD 06:36 → SUATTDRO 11:28 → 2SOUTHHOLD 11:34 → 3NENU 02-06 18:33
PROVIDERS: ADMIT Registered Nurse; ATTEND Hospitalist

== ENCOUNTER 2021-05-28 22:08 | Inpatient (IN) ==
[2021-05-28 22:58] LABS: Basophils % 0.1 %; Hemoglobin 11.8 g/dL (11.5-15.4); Immature Granulocytes % 0.6 % (0-4); Lymphocytes # 0.5 K/mcL (0.6-4.6); Lymphocytes % 7.2 %; Mean Corpuscular HGB Conc 32.8 g/dL (31.6-35.5); Mean Corpuscular Volume 79.5 fL (83.0-100.0); Mean Platelet Volume 10.3 fL (9.4-12.4); Monocytes # 0.4 K/mcL (0.0-1.3); Neutrophils # 6.1 K/mcL (1.6-8.9); Platelet Count 206 K/mcL (140-400); Red Blood Count 4.53 M/mcL (3.82-4.97); Segmented Neutrophils % 86.1 %; White Blood Count 7.1 K/mcL (4.3-11.1)
[2021-05-28 23:24] LABS: BUN/Creatinine Ratio 12 (6-26); Blood Urea Nitrogen 19 mg/dL (8-23); Calcium 9.5 mg/dL (8.6-10.3); Carbon Dioxide 19 mEq/L (23-29); Chloride 104 mEq/L (98-107); Glucose 179 mg/dL (70-105); Osmolality,Calculated 285 (280-300); Potassium 3.4 mEq/L (3.5-5.1); Sodium 134 mEq/L (136-145); eGFR For African Americans 38 (> 60); eGFR For Non-African Americans 32 (> 60)
[2021-05-28 23:25] LABS: Troponin I < 0.03 ng/mL (< 0.04)
[2021-05-28] MEDS ORDERED: Vancomycin 1,500 MG/265 ML IV.SOLN IVPB ONE (23:57)
[2021-05-28] MEDS ORDERED: Piperacillin/Tazobactam 3.375 GM in 0.9 % Sodium Chloride Mini Bag 100 ML IVPB ONE (23:57)
[2021-05-28] MEDS ORDERED: Azithromycin 500 MG in 0.9 % Sodium Chloride 250 ML IVPB ONE (23:57)
[2021-05-29 00:42] LABS: Bacteria,Urine Few per hpf (None-Few); Bilirubin,Urine Negative (Negative); Blood,Urine Moderate (Negative); Clarity,Urine Clear (Clear); Color,Urine Yellow (Yellow); Glucose,Urine (UA) Normal (Normal); Ketones,Urine Negative (Negative); Leukocyte Esterase,Urine Negative (Negative); Mucus,Urine Few per lpf (None-Few); Nitrite,Urine Negative (Negative); Protein,Urine >=600 mg/dL (Neg-Trace); RBC,Urine 0-3 per hpf (0-3); Specific Gravity,Urine 1.027 (1.010-1.025); Squamous Epithelial Cell,Urine Few per hpf (None-Few); Urobilinogen,Urine Normal (Normal)
[2021-05-29 01:17] LABS: Adenovirus Not Detected (Not Detect); Coronavirus 229E Not Detected (Not Detect); Coronavirus HKU1 Not Detected (Not Detect); Coronavirus NL63 Not Detected (Not Detect); Coronavirus OC43 Not Detected (Not Detect)
[2021-05-29 01:18] LABS: Human Metapneumovirus Not Detected (Not Detect); Human Rhinovirus/Enterovirus Not Detected (Not Detect); Influenza A Subtype 2009 H1 Not Detected (Not Detect); SARS-CoV-2 DETECTED (Not Detect)
[2021-05-29 01:19] LABS: Bordetella Pertussis Not Detected (Not Detect); Chlamydophila pneumoniae Not Detected (Not Detect); Influenza B Not Detected (Not Detect); Mycoplasma pneumoniae Not Detected (Not Detect); Parainfluenza Virus 1 Not Detected (Not Detect); Parainfluenza Virus 2 Not Detected (Not Detect); Parainfluenza Virus 3 Not Detected (Not Detect); Parainfluenza Virus 4 Not Detected (Not Detect); Respiratory Syncytial Virus Not Detected (Not Detect)
[2021-05-29] MEDS ORDERED: Melatonin 3 MG TABLET PO PRN (01:58)
[2021-05-29] MEDS ORDERED: Naloxone 0.4 MG/ML INJ IVP PRN (01:58)
[2021-05-29] MEDS ORDERED: Ondansetron 4 MG/2 ML VIAL IVP PRN (01:58)
[2021-05-29] MEDS ORDERED: *HR* Dextrose 50 % in Water (Vial) 50 ML VIAL IVP PRN (02:02)
[2021-05-29] MEDS ORDERED: D5% in Water 1,000 ML IVC PRN (02:02)
[2021-05-29] MEDS ORDERED: Dextrose Gel 15 GM/37.5 ML TUBE PO PRN ×2 (02:02)
[2021-05-29] MEDS ORDERED: Ipratropium 1 PUFF INHALER IH PRN (02:30)
[2021-05-29] MEDS: *HR* Enoxaparin 30 MG/0.3 ML SYRINGE SQ SCH ×2 (04:23→06:20)
[2021-05-29 04:39] LABS: Hematocrit 34.2 % (35.3-44.9); Hemoglobin 11.2 g/dL (11.5-15.4); Mean Corpuscular HGB Conc 32.7 g/dL (31.6-35.5); Mean Corpuscular Hemoglobin 25.8 pg (28.0-33.3); Mean Corpuscular Volume 78.8 fL (83.0-100.0); Mean Platelet Volume 10.3 fL (9.4-12.4); Platelet Count 242 K/mcL (140-400); Red Blood Count 4.34 M/mcL (3.82-4.97)
[2021-05-29 04:46] LABS: Calcium 8.9 mg/dL (8.6-10.3); Potassium 3.3 mEq/L (3.5-5.1)
[2021-05-29 04:47] LABS: D-Dimer 789 ng/mLFEU (0-500)
[2021-05-29 04:55] LABS: Fibrinogen 683 mg/dL (169-393)
[2021-05-29] MEDS: Insulin LISPRO 300 UNITS/3 ML VIAL SUBQ SCH ×3 (06:42→17:39)
[2021-05-29] MEDS ORDERED: levoFLOXacin 500 MG/100 ML 500 MG/100 ML BAG IVPB SCH (08:00)
[2021-05-29] MEDS: BuPROPion SR (12 HR) 150 MG TABLET PO SCH (20:54)
[2021-05-30] MEDS: Insulin LISPRO 300 UNITS/3 ML VIAL SUBQ SCH ×4 (00:19→18:25)
[2021-05-30 04:56] LABS: Acinetobacter baumannii by PCR Not Detected (Not Detect); Candida albicans by PCR Not Detected (Not Detect); Candida glabrata by PCR Not Detected (Not Detect); Candida krusei by PCR Not Detected (Not Detect); Candida parapsilosis by PCR Not Detected (Not Detect); Candida tropicalis by PCR Not Detected (Not Detect); Enterobacter cloacae Cmplx PCR Not Detected (Not Detect); Enterobacteriaceae by PCR Not Detected (Not Detect); Enterococcus by PCR Not Detected (Not Detect); Escherichia coli by PCR Not Detected (Not Detect); Klebsiella oxytoca by PCR Not Detected (Not Detect); Klebsiella pneumoniae by PCR Not Detected (Not Detect); Proteus by PCR Not Detected (Not Detect); Pseudomonas aeruginosa by PCR Not Detected (Not Detect); Serratia marcescens by PCR Not Detected (Not Detect); Staphylococcus aureus by PCR Not Detected (Not Detect); Staphylococcus by PCR DETECTED (Not Detect); Streptococcus agalactiae(B)PCR Not Detected (Not Detect); Streptococcus by PCR Not Detected (Not Detect); Streptococcus pneumoniae PCR Not Detected (Not Detect); Streptococcus pyogenes (A) PCR Not Detected (Not Detect); mecA Methicillin-Resist Gene DETECTED (Not Detect)
[2021-05-30] MEDS: Levothyroxine 25 MCG TABLET PO SCH (05:51)
[2021-05-30] MEDS: *HR* Enoxaparin 40 MG/0.4 ML SYRINGE SQ SCH (05:51)
[2021-05-30] MEDS: amLODIPine 5 MG TABLET PO SCH (08:26)
[2021-05-30] MEDS: BuPROPion SR (12 HR) 150 MG TABLET PO SCH ×2 (08:26→20:03)
[2021-05-30] MEDS: Metoprolol XL (24 HR) Succ 50 MG TAB.ER.24H PO SCH (08:27)
[2021-05-30] MEDS: Ipratropium 1 PUFF INHALER IH SCH ×2 (15:25→20:10)
[2021-05-30] MEDS ORDERED: Ipratropium 1 PUFF INHALER IH SCH (16:00)
[2021-05-31] MEDS: Insulin LISPRO 300 UNITS/3 ML VIAL SUBQ SCH ×4 (00:01→16:13)
[2021-05-31] MEDS: Ipratropium 1 PUFF INHALER IH SCH ×7 (00:10→22:58)
[2021-05-31 03:14] LABS: Albumin 3.5 g/dL (3.5-5.7); Bilirubin,Direct 0.1 mg/dL (0.0-0.2); Bilirubin,Indirect 0.3 mg/dL (0.0-1.0); Bilirubin,Total 0.4 mg/dL (0.3-1.0); Calcium 10.1 mg/dL (8.6-10.3); Globulin 3.4 g/dL (2.4-3.5); Potassium 4.6 mEq/L (3.5-5.1); Total Protein 6.9 g/dL (6.4-8.9)
[2021-05-31] MEDS: *HR* Enoxaparin 40 MG/0.4 ML SYRINGE SQ SCH (04:49)
[2021-05-31 05:51] LABS: Basophils % 0.3 %; Hematocrit 35.2 % (35.3-44.9); Hemoglobin 11.5 g/dL (11.5-15.4); Immature Granulocytes % 1.7 % (0-4); Lymphocytes # 0.9 K/mcL (0.6-4.6); Lymphocytes % 7.9 %; Mean Corpuscular HGB Conc 32.7 g/dL (31.6-35.5); Mean Corpuscular Volume 79.5 fL (83.0-100.0); Mean Platelet Volume 9.7 fL (9.4-12.4); Monocytes # 0.8 K/mcL (0.0-1.3); Monocytes % 7.4 %; Neutrophils # 9.4 K/mcL (1.6-8.9); Platelet Count 378 K/mcL (140-400); Red Blood Count 4.43 M/mcL (3.82-4.97); Red Cell Distribution Width 14.5 % (11.5-14.5); Segmented Neutrophils % 82.7 %; White Blood Count 11.4 K/mcL (4.3-11.1)
[2021-05-31] MEDS: Levothyroxine 25 MCG TABLET PO SCH (06:03)
[2021-05-31] MEDS ORDERED: *HR* Labetalol 20 MG/4 ML SYRINGE IVP ONE (06:10)
[2021-05-31] MEDS: levoFLOXacin 750 MG/150 ML 750 MG/150 ML BAG IVPB SCH (07:55)
[2021-05-31] MEDS: amLODIPine 5 MG TABLET PO SCH ×3 (07:57→09:42)
[2021-05-31] MEDS: Metoprolol XL (24 HR) Succ 50 MG TAB.ER.24H PO SCH (07:57)
[2021-05-31] MEDS: BuPROPion SR (12 HR) 150 MG TABLET PO SCH ×2 (07:57→21:29)
[2021-06-01] MEDS: Ipratropium 1 PUFF INHALER IH SCH ×6 (03:45→23:33)
[2021-06-01] MEDS ORDERED: *HR* Enoxaparin 30 MG/0.3 ML SYRINGE SQ SCH (06:00)
[2021-06-01] MEDS: Metoprolol XL (24 HR) Succ 50 MG TAB.ER.24H PO SCH (06:05)
[2021-06-01] MEDS: amLODIPine 5 MG TABLET PO SCH (06:05)
[2021-06-01 06:24] LABS: Calcium 9.8 mg/dL (8.6-10.3); Potassium 4.3 mEq/L (3.5-5.1)
[2021-06-01 06:57] LABS: Basophils # 0.1 K/mcL (0.0-0.2); Basophils % 0.5 %; Eosinophils % 0.1 %; Hematocrit 36.1 % (35.3-44.9); Immature Granulocytes % 2.6 % (0-4); Lymphocytes # 1.1 K/mcL (0.6-4.6); Lymphocytes % 10.1 %; Mean Corpuscular HGB Conc 33.2 g/dL (31.6-35.5); Mean Corpuscular Hemoglobin 26.2 pg (28.0-33.3); Mean Corpuscular Volume 78.8 fL (83.0-100.0); Mean Platelet Volume 10.1 fL (9.4-12.4); Monocytes # 1.1 K/mcL (0.0-1.3); Monocytes % 10.2 %; Neutrophils # 8.3 K/mcL (1.6-8.9); Platelet Count 402 K/mcL (140-400); Red Blood Count 4.58 M/mcL (3.82-4.97); Red Cell Distribution Width 14.5 % (11.5-14.5); Segmented Neutrophils % 76.5 %; White Blood Count 10.8 K/mcL (4.3-11.1)
[2021-06-01] MEDS: Levothyroxine 25 MCG TABLET PO SCH (08:00)
[2021-06-01] MEDS: Insulin LISPRO 300 UNITS/3 ML VIAL SUBQ SCH ×3 (08:01→17:19)
[2021-06-01] MEDS: BuPROPion SR (12 HR) 150 MG TABLET PO SCH ×2 (08:02→20:57)
[2021-06-01] MEDS ORDERED: Dexamethasone Sodium Phos/PF 10 MG/ML VIAL IVP ONE (15:31)
[2021-06-01] MEDS: carvediloL 6.25 MG TABLET PO SCH (17:19)
[2021-06-02] MEDS: Ipratropium 1 PUFF INHALER IH SCH ×6 (04:09→23:30)
[2021-06-02] MEDS: *HR* Enoxaparin 40 MG/0.4 ML SYRINGE SQ SCH (05:43)
[2021-06-02] MEDS: Levothyroxine 25 MCG TABLET PO SCH (05:43)
[2021-06-02 06:07] LABS: Basophils # 0.1 K/mcL (0.0-0.2); Basophils % 0.7 %; Eosinophils # 0.1 K/mcL (0.0-0.6); Eosinophils % 0.6 %; Hematocrit 37.8 % (35.3-44.9); Hemoglobin 12.3 g/dL (11.5-15.4); Immature Granulocytes % 4.3 % (0-4); Lymphocytes # 0.8 K/mcL (0.6-4.6); Lymphocytes % 6.4 %; Mean Corpuscular HGB Conc 32.5 g/dL (31.6-35.5); Mean Corpuscular Hemoglobin 25.8 pg (28.0-33.3); Mean Corpuscular Volume 79.4 fL (83.0-100.0); Mean Platelet Volume 9.4 fL (9.4-12.4); Monocytes # 0.6 K/mcL (0.0-1.3); Monocytes % 5.4 %; Neutrophils # 9.8 K/mcL (1.6-8.9); Platelet Count 464 K/mcL (140-400); Red Blood Count 4.76 M/mcL (3.82-4.97); Red Cell Distribution Width 14.6 % (11.5-14.5); Segmented Neutrophils % 82.6 %; White Blood Count 11.9 K/mcL (4.3-11.1)
[2021-06-02 06:34] LABS: Potassium 4.3 mEq/L (3.5-5.1)
[2021-06-02] MEDS: BuPROPion SR (12 HR) 150 MG TABLET PO SCH ×2 (08:03→20:18)
[2021-06-02] MEDS: amLODIPine 5 MG TABLET PO SCH (08:04)
[2021-06-02] MEDS: carvediloL 6.25 MG TABLET PO SCH ×2 (08:04→16:17)
[2021-06-02] MEDS: Insulin LISPRO 300 UNITS/3 ML VIAL SUBQ SCH ×3 (08:05→16:17)
[2021-06-02] MEDS: levoFLOXacin 750 MG/150 ML 750 MG/150 ML BAG IVPB SCH (17:22)
[2021-06-03] MEDS: Ipratropium 1 PUFF INHALER IH SCH ×6 (04:44→23:50)
[2021-06-03] MEDS: Levothyroxine 25 MCG TABLET PO SCH (05:31)
[2021-06-03] MEDS: *HR* Enoxaparin 40 MG/0.4 ML SYRINGE SQ SCH (05:31)
[2021-06-03] MEDS: carvediloL 6.25 MG TABLET PO SCH ×2 (10:32→17:15)
[2021-06-03] MEDS: amLODIPine 5 MG TABLET PO SCH (10:32)
[2021-06-03] MEDS: BuPROPion SR (12 HR) 150 MG TABLET PO SCH ×2 (10:32→21:58)
[2021-06-03] MEDS: Insulin LISPRO 300 UNITS/3 ML VIAL SUBQ SCH ×3 (10:39→17:15)
[2021-06-03] MEDS: Magic Mouthwash 10 ML UD Cup PO SCH ×2 (13:05→17:16)
[2021-06-04] MEDS: Ipratropium 1 PUFF INHALER IH SCH ×6 (04:40→23:59)
[2021-06-04] MEDS: Levothyroxine 25 MCG TABLET PO SCH (04:53)
[2021-06-04] MEDS: *HR* Enoxaparin 40 MG/0.4 ML SYRINGE SQ SCH (04:53)
[2021-06-04 05:45] LABS: Hematocrit 36.9 % (35.3-44.9); Mean Corpuscular HGB Conc 32.5 g/dL (31.6-35.5); Mean Corpuscular Hemoglobin 25.7 pg (28.0-33.3); Mean Platelet Volume 9.2 fL (9.4-12.4); Platelet Count 474 K/mcL (140-400); Red Blood Count 4.67 M/mcL (3.82-4.97); Red Cell Distribution Width 14.5 % (11.5-14.5)
[2021-06-04 05:51] LABS: White Blood Count 19.5 K/mcL (4.3-11.1)
[2021-06-04 06:05] LABS: Potassium 4.3 mEq/L (3.5-5.1)
[2021-06-04 06:07] LABS: Lymphocytes # 0.4 K/mcL (0.6-4.6); Monocytes # 1.6 K/mcL (0.0-1.3); Neutrophils # 17.6 K/mcL (1.6-8.9)
[2021-06-04] MEDS: Magic Mouthwash 10 ML UD Cup PO SCH ×3 (07:45→17:39)
[2021-06-04] MEDS: levoFLOXacin 750 MG/150 ML 750 MG/150 ML BAG IVPB SCH (08:31)
[2021-06-04] MEDS: amLODIPine 5 MG TABLET PO SCH (08:34)
[2021-06-04] MEDS: Insulin LISPRO 300 UNITS/3 ML VIAL SUBQ SCH ×3 (08:34→17:39)
[2021-06-04] MEDS: carvediloL 6.25 MG TABLET PO SCH ×2 (08:34→17:39)
[2021-06-04] MEDS: BuPROPion SR (12 HR) 150 MG TABLET PO SCH ×2 (08:34→20:59)
[2021-06-05] MEDS: Ipratropium 1 PUFF INHALER IH SCH ×5 (03:54→20:43)
[2021-06-05] MEDS ORDERED: *HR* Enoxaparin 30 MG/0.3 ML SYRINGE SQ SCH (06:00)
[2021-06-05] MEDS: Levothyroxine 25 MCG TABLET PO SCH (06:05)
[2021-06-05 06:46] LABS: Basophils # 0.1 K/mcL (0.0-0.2); Basophils % 0.3 %; Eosinophils % 0.1 %; Hematocrit 37.4 % (35.3-44.9); Hemoglobin 12.2 g/dL (11.5-15.4); Immature Granulocytes % 5.1 % (0-4); Lymphocytes # 0.6 K/mcL (0.6-4.6); Lymphocytes % 3.7 %; Mean Corpuscular HGB Conc 32.6 g/dL (31.6-35.5); Mean Corpuscular Hemoglobin 25.8 pg (28.0-33.3); Mean Corpuscular Volume 79.2 fL (83.0-100.0); Mean Platelet Volume 9.8 fL (9.4-12.4); Monocytes % 7.8 %; Neutrophils # 14.3 K/mcL (1.6-8.9); Platelet Count 410 K/mcL (140-400); Red Blood Count 4.72 M/mcL (3.82-4.97); Red Cell Distribution Width 14.5 % (11.5-14.5); White Blood Count 17.2 K/mcL (4.3-11.1)
[2021-06-05 06:50] LABS: Monocytes # 1.3 K/mcL (0.0-1.3)
[2021-06-05 07:04] LABS: Platelet Estimate Normal (Normal)
[2021-06-05 07:18] LABS: Potassium 3.5 mEq/L (3.5-5.1)
[2021-06-05] MEDS: Insulin LISPRO 300 UNITS/3 ML VIAL SUBQ SCH ×3 (09:14→17:14)
[2021-06-05] MEDS: carvediloL 6.25 MG TABLET PO SCH ×2 (09:15→17:13)
[2021-06-05] MEDS: BuPROPion SR (12 HR) 150 MG TABLET PO SCH ×2 (09:16→20:03)
[2021-06-05] MEDS: amLODIPine 5 MG TABLET PO SCH (09:16)
[2021-06-05] MEDS: Magic Mouthwash 10 ML UD Cup PO SCH ×3 (09:21→17:13)
[2021-06-05 09:48] LABS: Calcium 7.2 mg/dL (8.6-10.3)
[2021-06-05] MEDS ORDERED: Gabapentin 100 MG CAPSULE PO SCH (21:00)
[2021-06-06] MEDS: Ipratropium 1 PUFF INHALER IH SCH ×6 (00:06→20:23)
[2021-06-06 03:42] LABS: Basophils % 0.3 %; Hematocrit 33.1 % (35.3-44.9); Immature Granulocytes % 5.5 % (0-4); Lymphocytes # 0.6 K/mcL (0.6-4.6); Lymphocytes % 4.2 %; Mean Corpuscular HGB Conc 33.2 g/dL (31.6-35.5); Mean Corpuscular Hemoglobin 26.4 pg (28.0-33.3); Mean Corpuscular Volume 79.4 fL (83.0-100.0); Mean Platelet Volume 9.6 fL (9.4-12.4); Monocytes # 0.8 K/mcL (0.0-1.3); Monocytes % 5.8 %; Neutrophils # 12.1 K/mcL (1.6-8.9); Platelet Count 335 K/mcL (140-400); Red Blood Count 4.17 M/mcL (3.82-4.97); Red Cell Distribution Width 14.3 % (11.5-14.5); Segmented Neutrophils % 84.2 %; White Blood Count 14.4 K/mcL (4.3-11.1)
[2021-06-06 04:11] LABS: Calcium 8.8 mg/dL (8.6-10.3); Potassium 4.5 mEq/L (3.5-5.1)
[2021-06-06] MEDS: Levothyroxine 25 MCG TABLET PO SCH (05:42)
[2021-06-06] MEDS: *HR* Enoxaparin 40 MG/0.4 ML SYRINGE SQ SCH (05:42)
[2021-06-06] MEDS: Insulin LISPRO 300 UNITS/3 ML VIAL SUBQ SCH ×3 (08:39→17:36)
[2021-06-06] MEDS: Magic Mouthwash 10 ML UD Cup PO SCH ×3 (08:40→17:39)
[2021-06-06] MEDS: carvediloL 6.25 MG TABLET PO SCH ×2 (08:41→17:36)
[2021-06-06] MEDS: amLODIPine 5 MG TABLET PO SCH (08:41)
[2021-06-06] MEDS: BuPROPion SR (12 HR) 150 MG TABLET PO SCH ×2 (08:42→21:22)
[2021-06-06] MEDS: Dexamethasone Sodium Phos/PF 10 MG/ML VIAL IVP SCH (08:43)
[2021-06-06] MEDS: Gabapentin 100 MG CAPSULE PO SCH ×2 (12:24→21:22)
[2021-06-07] MEDS: Ipratropium 1 PUFF INHALER IH SCH ×7 (00:39→23:16)
[2021-06-07] MEDS: *HR* Enoxaparin 40 MG/0.4 ML SYRINGE SQ SCH (05:30)
[2021-06-07] MEDS: Levothyroxine 25 MCG TABLET PO SCH (05:31)
[2021-06-07] MEDS: Insulin LISPRO 300 UNITS/3 ML VIAL SUBQ SCH ×3 (08:51→16:35)
[2021-06-07] MEDS: Dexamethasone Sodium Phos/PF 10 MG/ML VIAL IVP SCH (08:52)
[2021-06-07] MEDS: carvediloL 6.25 MG TABLET PO SCH ×2 (08:55→16:36)
[2021-06-07] MEDS: Gabapentin 100 MG CAPSULE PO SCH ×2 (08:55→20:22)
[2021-06-07] MEDS: amLODIPine 5 MG TABLET PO SCH (08:55)
[2021-06-07] MEDS: BuPROPion SR (12 HR) 150 MG TABLET PO SCH ×2 (08:56→20:22)
[2021-06-07] MEDS: Magic Mouthwash 10 ML UD Cup PO SCH ×3 (09:18→16:37)
[2021-06-07 09:47] LABS: Basophils # 0.1 K/mcL (0.0-0.2); Basophils % 0.3 %; Hematocrit 39.9 % (35.3-44.9); Immature Granulocytes % 2.3 % (0-4); Lymphocytes # 1.4 K/mcL (0.6-4.6); Lymphocytes % 6.5 %; Mean Corpuscular HGB Conc 32.8 g/dL (31.6-35.5); Mean Corpuscular Hemoglobin 26.2 pg (28.0-33.3); Mean Corpuscular Volume 79.8 fL (83.0-100.0); Mean Platelet Volume 9.9 fL (9.4-12.4); Monocytes # 1.6 K/mcL (0.0-1.3); Monocytes % 7.2 %; Neutrophils # 18.2 K/mcL (1.6-8.9); Platelet Count 365 K/mcL (140-400); Red Cell Distribution Width 14.4 % (11.5-14.5); Segmented Neutrophils % 83.7 %
[2021-06-07 09:48] LABS: Hemoglobin 13.1 g/dL (11.5-15.4); White Blood Count 21.7 K/mcL (4.3-11.1)
[2021-06-07 10:03] LABS: Potassium 4.3 mEq/L (3.5-5.1)
[2021-06-07] MEDS: Furosemide 40 MG TABLET PO SCH (12:59)
[2021-06-08] MEDS: Ipratropium 1 PUFF INHALER IH SCH ×6 (03:56→23:14)
[2021-06-08] MEDS: Levothyroxine 25 MCG TABLET PO SCH (05:16)
[2021-06-08] MEDS: *HR* Enoxaparin 40 MG/0.4 ML SYRINGE SQ SCH (05:16)
[2021-06-08] MEDS: Insulin LISPRO 300 UNITS/3 ML VIAL SUBQ SCH ×3 (08:00→17:41)
[2021-06-08] MEDS: Magic Mouthwash 10 ML UD Cup PO SCH ×3 (10:47→17:42)
[2021-06-08] MEDS: amLODIPine 5 MG TABLET PO SCH (10:47)
[2021-06-08] MEDS: carvediloL 6.25 MG TABLET PO SCH ×2 (10:48→17:42)
[2021-06-08] MEDS: Gabapentin 100 MG CAPSULE PO SCH ×2 (10:48→22:31)
[2021-06-08] MEDS: Furosemide 40 MG TABLET PO SCH (10:48)
[2021-06-08] MEDS: BuPROPion SR (12 HR) 150 MG TABLET PO SCH ×2 (10:48→22:31)
[2021-06-08 12:13] LABS: Hematocrit 38.4 % (35.3-44.9); Hemoglobin 12.4 g/dL (11.5-15.4); Mean Corpuscular HGB Conc 32.3 g/dL (31.6-35.5); Mean Corpuscular Hemoglobin 25.7 pg (28.0-33.3); Mean Corpuscular Volume 79.7 fL (83.0-100.0); Mean Platelet Volume 9.7 fL (9.4-12.4); Platelet Count 273 K/mcL (140-400); Red Blood Count 4.82 M/mcL (3.82-4.97); White Blood Count 19.7 K/mcL (4.3-11.1)
[2021-06-08 12:15] LABS: Calcium 8.6 mg/dL (8.6-10.3); Potassium 4.1 mEq/L (3.5-5.1)
[2021-06-09 00:42] VITALS: TEMP 97.9
[2021-06-09] MEDS: Ipratropium 1 PUFF INHALER IH SCH ×4 (04:20→15:36)
[2021-06-09 05:04] VITALS: PULSE 69
[2021-06-09] MEDS: Levothyroxine 25 MCG TABLET PO SCH (05:14)
[2021-06-09] MEDS: *HR* Enoxaparin 40 MG/0.4 ML SYRINGE SQ SCH (05:14)
[2021-06-09 06:21] LABS: Hematocrit 36.4 % (35.3-44.9); Hemoglobin 11.6 g/dL (11.5-15.4); Mean Corpuscular HGB Conc 31.9 g/dL (31.6-35.5); Mean Corpuscular Hemoglobin 25.7 pg (28.0-33.3); Mean Corpuscular Volume 80.7 fL (83.0-100.0); Mean Platelet Volume 10.1 fL (9.4-12.4); Platelet Count 244 K/mcL (140-400); Red Blood Count 4.51 M/mcL (3.82-4.97); Red Cell Distribution Width 14.2 % (11.5-14.5); White Blood Count 18.8 K/mcL (4.3-11.1)
[2021-06-09 06:47] LABS: Calcium 8.3 mg/dL (8.6-10.3); Potassium 4.2 mEq/L (3.5-5.1)
[2021-06-09] MEDS ORDERED: Furosemide 40 MG TABLET PO SCH (09:00)
[2021-06-09] MEDS: Gabapentin 100 MG CAPSULE PO SCH (09:43)
[2021-06-09] MEDS: carvediloL 6.25 MG TABLET PO SCH (09:43)
[2021-06-09] MEDS: BuPROPion SR (12 HR) 150 MG TABLET PO SCH (09:43)
[2021-06-09] MEDS: Magic Mouthwash 10 ML UD Cup PO SCH ×3 (09:44→16:51)
[2021-06-09] MEDS: Insulin LISPRO 300 UNITS/3 ML VIAL SUBQ SCH ×3 (09:44→16:51)
[2021-06-09] MEDS: amLODIPine 5 MG TABLET PO SCH (09:44)
[2021-06-09 14:40] VITALS: BP 120/68
[2021-06-09] MEDS ORDERED: carvediloL 6.25 MG TABLET PO SCH ×2 (17:00)
[2021-06-09 17:17] VITALS: O2SAT 92
== END 2021-06-09 19:01 | disposition other institution (70) | DRG 871 ==
LOC: 2NENU 22:08 → EMEROOARM 22:08 → OBSVTOIN 05-29 00:49 → SUATTDRO 05-29 00:49 → 2NENU 05-29 01:22
PROVIDERS: ADMIT Student in an Organized Health Care Education/Training Program; ATTEND Internal Medicine

== ENCOUNTER 2021-08-12 12:49 | Inpatient (IN) ==
[2021-08-12] MEDS ORDERED: Acetaminophen 325 MG TABLET PO ONE (14:08)
[2021-08-12 14:42] LABS: Basophils % 0.4 %; Eosinophils # 0.2 K/mcL (0.0-0.6); Eosinophils % 2.9 %; Hematocrit 38.8 % (35.3-44.9); Hemoglobin 12.2 g/dL (11.5-15.4); Immature Granulocytes % 0.1 % (0-4); Lymphocytes # 1.3 K/mcL (0.6-4.6); Lymphocytes % 16.7 %; Mean Corpuscular HGB Conc 31.4 g/dL (31.6-35.5); Mean Corpuscular Volume 85.8 fL (83.0-100.0); Monocytes # 0.8 K/mcL (0.0-1.3); Monocytes % 10.6 %; Neutrophils # 5.2 K/mcL (1.6-8.9); Platelet Count 201 K/mcL (140-400); Red Blood Count 4.52 M/mcL (3.82-4.97); Red Cell Distribution Width 14.3 % (11.5-14.5); Segmented Neutrophils % 69.3 %; White Blood Count 7.6 K/mcL (4.3-11.1)
[2021-08-12 14:53] LABS: INR 1.2
[2021-08-12 15:00] LABS: Alanine Aminotransferase 7 Units/L (7-52); Albumin 3.8 g/dL (3.5-5.7); Albumin/Globulin Ratio 1.4 (1.1-2.2); Alkaline Phosphatase 74 Units/L (34-104); Aspartate Amino Transferase 10 Units/L (13-39); BUN/Creatinine Ratio 13 (6-26); Bilirubin,Total 0.6 mg/dL (0.3-1.0); Blood Urea Nitrogen 13 mg/dL (8-23); Calcium 9.9 mg/dL (8.6-10.3); Carbon Dioxide 29 mEq/L (23-29); Chloride 105 mEq/L (98-107); Globulin 2.8 g/dL (2.4-3.5); Glucose 137 mg/dL (70-105); Osmolality,Calculated 296 (280-300); Potassium 3.9 mEq/L (3.5-5.1); Sodium 142 mEq/L (136-145); Total Protein 6.6 g/dL (6.4-8.9); eGFR For African Americans > 60 (> 60); eGFR For Non-African Americans 53 (> 60)
[2021-08-12 15:01] LABS: Troponin I < 0.03 ng/mL (< 0.04)
[2021-08-12] MEDS ORDERED: *HR* Labetalol 20 MG/4 ML SYRINGE IVP ONE ×2 (15:11→22:04)
[2021-08-12] MEDS ORDERED: Naloxone 0.4 MG/ML INJ IVP PRN (17:52)
[2021-08-12] MEDS ORDERED: D5% in Water 1,000 ML IVC PRN (17:55)
[2021-08-12] MEDS ORDERED: *HR* Dextrose 50 % in Water (Syg) 50 ML SYRINGE IVP PRN (17:55)
[2021-08-12] MEDS ORDERED: Dextrose Gel 15 GM/37.5 ML TUBE PO PRN ×2 (17:55)
[2021-08-12] MEDS ORDERED: Ipratropium/Albuterol Neb 3 ML IH PRN (18:19)
[2021-08-12 19:02] LABS: Bacteria,Urine Few per hpf (None-Few); Bilirubin,Urine Negative (Negative); Blood,Urine Negative (Negative); Clarity,Urine Clear (Clear); Color,Urine Yellow (Yellow); Glucose,Urine (UA) Normal (Normal); Hyaline Casts,Urine Few per lpf (None Seen); Ketones,Urine Negative (Negative); Leukocyte Esterase,Urine Trace (Negative); Mucus,Urine Few per lpf (None-Few); Nitrite,Urine Negative (Negative); Protein,Urine 70 mg/dL (Neg-Trace); RBC,Urine 0-3 per hpf (0-3); Specific Gravity,Urine 1.026 (1.010-1.025); Squamous Epithelial Cell,Urine Few per hpf (None-Few); Transitional Epi Cells,Urine Few per hpf (None-Few); Urobilinogen,Urine Normal (Normal)
[2021-08-12] MEDS: NIFEdipine XL (24 HR) 60 MG TAB.ER.24 PO SCH (21:23)
[2021-08-12] MEDS: *HR* Heparin 5,000 UNIT/ML VIAL SQ SCH (21:23)
[2021-08-12] MEDS: Insulin LISPRO 300 UNITS/3 ML VIAL SUBQ SCH (21:24)
[2021-08-12] MEDS ORDERED: Morphine Sulfate 2 MG/ML SYRINGE IVP ONE (22:04)
[2021-08-12] MEDS ORDERED: Ketorolac 15 MG/ML VIAL IVP ONE (22:06)
[2021-08-12] MEDS ORDERED: *HR* LORazepam 0.5 MG TABLET PO ONE (22:28)
[2021-08-12] MEDS ORDERED: niCARdipine 20 MG/200 ML MLS IVC SCH (23:45)
[2021-08-12] MEDS: traZODone 50 MG TABLET PO SCH (23:45)
[2021-08-13 05:46] LABS: Basophils % 0.4 %; Eosinophils # 0.1 K/mcL (0.0-0.6); Eosinophils % 1.5 %; Hematocrit 39.1 % (35.3-44.9); Hemoglobin 12.5 g/dL (11.5-15.4); Immature Granulocytes % 0.2 % (0-4); Lymphocytes # 1.2 K/mcL (0.6-4.6); Lymphocytes % 14.4 %; Mean Corpuscular Hemoglobin 26.7 pg (28.0-33.3); Mean Corpuscular Volume 83.4 fL (83.0-100.0); Mean Platelet Volume 10.2 fL (9.4-12.4); Monocytes % 11.8 %; Neutrophils # 6.1 K/mcL (1.6-8.9); Platelet Count 219 K/mcL (140-400); Red Blood Count 4.69 M/mcL (3.82-4.97); Red Cell Distribution Width 14.5 % (11.5-14.5); Segmented Neutrophils % 71.7 %; White Blood Count 8.6 K/mcL (4.3-11.1)
[2021-08-13] MEDS: *HR* Heparin 5,000 UNIT/ML VIAL SQ SCH ×3 (05:50→20:13)
[2021-08-13 06:04] LABS: BUN/Creatinine Ratio 13 (6-26); Blood Urea Nitrogen 13 mg/dL (8-23); Calcium 9.9 mg/dL (8.6-10.3); Carbon Dioxide 25 mEq/L (23-29); Chloride 103 mEq/L (98-107); Glucose 161 mg/dL (70-105); Osmolality,Calculated 286 (280-300); Potassium 3.6 mEq/L (3.5-5.1); Sodium 136 mEq/L (136-145); eGFR For African Americans > 60 (> 60); eGFR For Non-African Americans 56 (> 60)
[2021-08-13] MEDS: Insulin LISPRO 300 UNITS/3 ML VIAL SUBQ SCH ×4 (08:43→20:13)
[2021-08-13] MEDS: carvediloL 6.25 MG TABLET PO SCH ×2 (08:43→15:50)
[2021-08-13] MEDS: NIFEdipine XL (24 HR) 60 MG TAB.ER.24 PO SCH (11:15)
[2021-08-13] MEDS: traZODone 50 MG TABLET PO SCH (20:13)
[2021-08-14 03:13] LABS: Basophils % 0.3 %; Eosinophils # 0.1 K/mcL (0.0-0.6); Eosinophils % 0.9 %; Hemoglobin 12.1 g/dL (11.5-15.4); Immature Granulocytes % 0.3 % (0-4); Lymphocytes # 1.2 K/mcL (0.6-4.6); Lymphocytes % 11.3 %; Mean Corpuscular HGB Conc 32.7 g/dL (31.6-35.5); Mean Corpuscular Hemoglobin 27.6 pg (28.0-33.3); Mean Corpuscular Volume 84.3 fL (83.0-100.0); Mean Platelet Volume 10.2 fL (9.4-12.4); Monocytes # 1.1 K/mcL (0.0-1.3); Monocytes % 10.7 %; Neutrophils # 7.8 K/mcL (1.6-8.9); Platelet Count 230 K/mcL (140-400); Red Blood Count 4.39 M/mcL (3.82-4.97); Red Cell Distribution Width 14.3 % (11.5-14.5); Segmented Neutrophils % 76.5 %; White Blood Count 10.2 K/mcL (4.3-11.1)
[2021-08-14] MEDS: Acetaminophen 325 MG TABLET PO PRN ×3 (03:16→20:41)
[2021-08-14 03:36] LABS: Calcium 9.7 mg/dL (8.6-10.3); Potassium 3.5 mEq/L (3.5-5.1)
[2021-08-14] MEDS: *HR* Heparin 5,000 UNIT/ML VIAL SQ SCH ×3 (05:57→21:02)
[2021-08-14] MEDS: Insulin LISPRO 300 UNITS/3 ML VIAL SUBQ SCH ×4 (08:18→20:12)
[2021-08-14] MEDS: carvediloL 6.25 MG TABLET PO SCH ×2 (08:18→16:52)
[2021-08-14 16:33] VITALS: O2SAT 94
[2021-08-14] MEDS: BuPROPion SR (12 HR) 150 MG TABLET PO SCH (20:25)
[2021-08-14] MEDS: traZODone 50 MG TABLET PO SCH (20:25)
[2021-08-15] MEDS: *HR* Heparin 5,000 UNIT/ML VIAL SQ SCH ×2 (06:26→14:01)
[2021-08-15] MEDS ORDERED: Levothyroxine 25 MCG TABLET PO SCH (06:30)
[2021-08-15 06:37] LABS: Basophils % 0.4 %; Eosinophils # 0.1 K/mcL (0.0-0.6); Eosinophils % 1.5 %; Hematocrit 36.7 % (35.3-44.9); Hemoglobin 11.9 g/dL (11.5-15.4); Immature Granulocytes % 0.4 % (0-4); Lymphocytes # 1.4 K/mcL (0.6-4.6); Lymphocytes % 16.8 %; Mean Corpuscular HGB Conc 32.4 g/dL (31.6-35.5); Mean Corpuscular Hemoglobin 27.4 pg (28.0-33.3); Mean Corpuscular Volume 84.6 fL (83.0-100.0); Mean Platelet Volume 10.7 fL (9.4-12.4); Monocytes # 0.8 K/mcL (0.0-1.3); Monocytes % 10.4 %; Neutrophils # 5.7 K/mcL (1.6-8.9); Platelet Count 227 K/mcL (140-400); Red Blood Count 4.34 M/mcL (3.82-4.97); Red Cell Distribution Width 14.1 % (11.5-14.5); Segmented Neutrophils % 70.5 %; White Blood Count 8.1 K/mcL (4.3-11.1)
[2021-08-15 06:52] LABS: BUN/Creatinine Ratio 19 (6-26); Blood Urea Nitrogen 21 mg/dL (8-23); Calcium 9.5 mg/dL (8.6-10.3); Carbon Dioxide 23 mEq/L (23-29); Chloride 104 mEq/L (98-107); Glucose 149 mg/dL (70-105); Osmolality,Calculated 288 (280-300); Potassium 3.5 mEq/L (3.5-5.1); Sodium 136 mEq/L (136-145); eGFR For African Americans > 60 (> 60); eGFR For Non-African Americans 50 (> 60)
[2021-08-15 08:21] VITALS: PULSE 97; TEMP 98.2
[2021-08-15] MEDS: Acetaminophen 325 MG TABLET PO PRN (09:16)
[2021-08-15] MEDS: carvediloL 25 MG TABLET PO SCH ×2 (09:16→17:35)
[2021-08-15] MEDS: BuPROPion SR (12 HR) 150 MG TABLET PO SCH (09:16)
[2021-08-15] MEDS: Insulin LISPRO 300 UNITS/3 ML VIAL SUBQ SCH ×3 (09:17→17:35)
[2021-08-15 12:19] VITALS: BP 171/72
[2021-08-15 15:33] LABS: Adenovirus Not Detected (Not Detect); Bordetella Pertussis Not Detected (Not Detect); Chlamydophila pneumoniae Not Detected (Not Detect); Coronavirus 229E Not Detected (Not Detect); Coronavirus HKU1 Not Detected (Not Detect); Coronavirus NL63 Not Detected (Not Detect); Coronavirus OC43 Not Detected (Not Detect); Human Metapneumovirus Not Detected (Not Detect); Human Rhinovirus/Enterovirus Not Detected (Not Detect); Influenza A Subtype 2009 H1 Not Detected (Not Detect); Influenza B Not Detected (Not Detect); Mycoplasma pneumoniae Not Detected (Not Detect); Parainfluenza Virus 1 Not Detected (Not Detect); Parainfluenza Virus 2 Not Detected (Not Detect); Parainfluenza Virus 3 Not Detected (Not Detect); Parainfluenza Virus 4 Not Detected (Not Detect); Respiratory Syncytial Virus Not Detected (Not Detect); SARS-CoV-2 Not Detected (Not Detect)
[2021-08-15] MEDS ORDERED: *HR* Labetalol 20 MG/4 ML SYRINGE IVP ONE (20:04)
== END 2021-08-15 20:22 | disposition other institution (70) | DRG 305 ==
LOC: EMEROOARM 12:49 → 2NENU 12:49 → SUATTDRO 18:01 → 2NENU 18:36
PROVIDERS: ADMIT Internal Medicine; ATTEND Internal Medicine

== ENCOUNTER 2022-06-27 20:20 | Observation (INO) ==
[2022-06-27 21:51] LABS: Calcium 9.6 mg/dL (8.6-10.3); Potassium 4.1 mEq/L (3.5-5.1)
[2022-06-27 21:52] LABS: Basophils % 0.2 %; Eosinophils # 0.2 K/mcL (0.0-0.6); Eosinophils % 0.9 %; Hematocrit 41.7 % (35.3-44.9); Hemoglobin 13.6 g/dL (11.5-15.4); Immature Granulocytes % 0.4 % (0-4); Lymphocytes # 1.6 K/mcL (0.6-4.6); Lymphocytes % 8.3 %; Mean Corpuscular HGB Conc 32.6 g/dL (31.6-35.5); Mean Corpuscular Hemoglobin 27.8 pg (28.0-33.3); Mean Corpuscular Volume 85.1 fL (83.0-100.0); Mean Platelet Volume 10.5 fL (9.4-12.4); Monocytes # 1.1 K/mcL (0.0-1.3); Monocytes % 5.9 %; Platelet Count 162 K/mcL (140-400); Red Cell Distribution Width 15.3 % (11.5-14.5); Segmented Neutrophils % 84.3 %
[2022-06-27 22:20] LABS: Influenza A PCR Negative (Negative); Influenza B PCR Negative (Negative); Resp. Syncytial Virus PCR Negative (Negative)
[2022-06-27 22:22] LABS: SARS-CoV-2 by PCR (In House) Negative (Negative)
[2022-06-27] MEDS ORDERED: 0.9 % Sodium Chloride 1,000 ML IV ONE (23:11)
[2022-06-27] MEDS ORDERED: Acetaminophen 325 MG TABLET PO ONE (23:11)
[2022-06-27 23:44] LABS: INR 1.1; Prothrombin Time 12.7 Seconds (9.4-12.1)
[2022-06-28 00:45] LABS: Bilirubin,Urine Negative (Negative); Blood,Urine Negative (Negative); Clarity,Urine Clear (Clear); Color,Urine Light-Yellow (Yellow); Glucose,Urine (UA) Normal (Normal); Ketones,Urine Negative (Negative); Leukocyte Esterase,Urine Moderate (Negative); Nitrite,Urine Negative (Negative); Protein,Urine Trace mg/dL (Neg-Trace); RBC,Urine 0-3 per hpf (0-3); Specific Gravity,Urine 1.015 (1.010-1.025); Squamous Epithelial Cell,Urine Few per hpf (None-Few); Urobilinogen,Urine Normal (Normal)
[2022-06-28] MEDS ORDERED: cefTRIAXone 2,000 MG in 0.9 % Sodium Chloride Mini Bag 100 ML IVPB ONE ×2 (03:49→04:00)
[2022-06-28] MEDS ORDERED: Melatonin 3 MG TABLET PO PRN (03:51)
[2022-06-28] MEDS ORDERED: *HR* HYDROcodone/Acet 5/325 mg TABLET PO PRN (03:51)
[2022-06-28] MEDS ORDERED: Ondansetron 4 MG/2 ML VIAL IVP PRN (03:51)
[2022-06-28] MEDS ORDERED: Naloxone 0.4 MG/ML INJ IVP PRN (03:51)
[2022-06-28] MEDS ORDERED: Acetaminophen 325 MG TABLET PO PRN (03:51)
[2022-06-28] MEDS: Ringers Solution, Lactated 1,000 ML IVC SCH ×2 (04:10→18:47)
[2022-06-28 05:07] LABS: Basophils % 0.2 %; Eosinophils # 0.2 K/mcL (0.0-0.6); Eosinophils % 1.7 %; Hematocrit 38.3 % (35.3-44.9); Hemoglobin 12.4 g/dL (11.5-15.4); Immature Granulocytes % 0.4 % (0-4); Lymphocytes # 2.7 K/mcL (0.6-4.6); Lymphocytes % 19.2 %; Mean Corpuscular HGB Conc 32.4 g/dL (31.6-35.5); Mean Corpuscular Hemoglobin 27.7 pg (28.0-33.3); Mean Corpuscular Volume 85.5 fL (83.0-100.0); Mean Platelet Volume 10.4 fL (9.4-12.4); Monocytes # 1.2 K/mcL (0.0-1.3); Monocytes % 8.9 %; Neutrophils # 9.7 K/mcL (1.6-8.9); Platelet Count 143 K/mcL (140-400); Red Blood Count 4.48 M/mcL (3.82-4.97); Red Cell Distribution Width 15.4 % (11.5-14.5); Segmented Neutrophils % 69.6 %; White Blood Count 13.9 K/mcL (4.3-11.1)
[2022-06-28 05:12] LABS: Albumin 3.5 g/dL (3.5-5.7); Albumin/Globulin Ratio 1.4 (1.1-2.2); Bilirubin,Total 0.6 mg/dL (0.3-1.0); Globulin 2.5 g/dL (2.4-3.5); Magnesium 1.9 mg/dL (1.6-2.6); Potassium 3.8 mEq/L (3.5-5.1)
[2022-06-28 05:13] LABS: INR 1.2
[2022-06-28 05:16] LABS: Activated Partial Thrombo Time 31.6 Seconds (26.0-36.0)
[2022-06-28] MEDS ORDERED: *HR* Heparin 5,000 UNIT/ML VIAL SQ SCH (06:00)
[2022-06-28] MEDS ORDERED: *HR* Dextrose 50 % in Water (Syg) 50 ML SYRINGE IVP PRN (06:12)
[2022-06-28] MEDS ORDERED: D5% in Water 1,000 ML IVC PRN (06:12)
[2022-06-28] MEDS ORDERED: Dextrose Gel 15 GM/37.5 ML TUBE PO PRN ×2 (06:12)
[2022-06-28] MEDS: *HR* Heparin 5,000 UNIT/ML VIAL SQ SCH ×3 (10:49→23:12)
[2022-06-28] MEDS: Insulin LISPRO 300 UNITS/3 ML VIAL SUBQ SCH ×3 (13:43→18:48)
[2022-06-28 15:45] LABS: Estimated Average Glucose 148 mg/dl; Hemoglobin A1C 6.8 %
[2022-06-29] MEDS ORDERED: traZODone 50 MG TABLET PO SCH (01:00)
[2022-06-29] MEDS ORDERED: *HR* Labetalol 20 MG/4 ML SYRINGE IVP ONE (03:47)
[2022-06-29 05:45] LABS: Basophils % 0.4 %; Eosinophils # 0.4 K/mcL (0.0-0.6); Eosinophils % 4.2 %; Hematocrit 40.6 % (35.3-44.9); Hemoglobin 12.9 g/dL (11.5-15.4); Immature Granulocytes % 0.4 % (0-4); Lymphocytes # 1.9 K/mcL (0.6-4.6); Mean Corpuscular HGB Conc 31.8 g/dL (31.6-35.5); Mean Corpuscular Volume 84.9 fL (83.0-100.0); Mean Platelet Volume 10.8 fL (9.4-12.4); Monocytes # 0.8 K/mcL (0.0-1.3); Neutrophils # 5.5 K/mcL (1.6-8.9); Platelet Count 152 K/mcL (140-400); Red Blood Count 4.78 M/mcL (3.82-4.97); Red Cell Distribution Width 15.4 % (11.5-14.5); White Blood Count 8.5 K/mcL (4.3-11.1)
[2022-06-29] MEDS: *HR* Heparin 5,000 UNIT/ML VIAL SQ SCH (05:51)
[2022-06-29 05:52] LABS: Calcium 9.4 mg/dL (8.6-10.3); Potassium 3.8 mEq/L (3.5-5.1)
[2022-06-29] MEDS ORDERED: Fluticasone Propionate Nasal 50 MCG/SPRAY BOTTLE NS PRN (07:44)
[2022-06-29] MEDS ORDERED: carvediloL 25 MG TABLET PO SCH (08:00)
[2022-06-29] MEDS ORDERED: BuPROPion XL (24 HR) 150 MG TABLET PO SCH (09:00)
[2022-06-29] MEDS ORDERED: cloNIDine HCL 0.1 MG TABLET PO SCH (09:00)
[2022-06-29] MEDS ORDERED: cefTRIAXone 2,000 MG in 0.9 % Sodium Chloride 20 ML IVP SCH (09:00)
[2022-06-29] MEDS ORDERED: Gabapentin 400 MG CAPSULE PO SCH (09:00)
[2022-06-29] MEDS ORDERED: Magnesium Oxide 400 MG TABLET PO SCH (09:00)
[2022-06-29] MEDS ORDERED: diazePAM 2 MG TABLET PO SCH (09:00)
[2022-06-29] MEDS ORDERED: amLODIPine 5 MG TABLET PO SCH (09:00)
[2022-06-29] MEDS ORDERED: Aspirin Enteric Coated 81 MG Tablet PO SCH (09:00)
[2022-06-29] MEDS: Insulin LISPRO 300 UNITS/3 ML VIAL SUBQ SCH ×2 (09:15→12:23)
[2022-06-29] MEDS ORDERED: Budesonide/Formoterol 160/4.5 1 PUFF INH IH SCH (10:00)
[2022-06-29 14:51] VITALS: BP 93/59; PULSE 74; TEMP 97.5; O2SAT 94
[2022-06-29] MEDS ORDERED: Melatonin 3 MG TABLET PO SCH (21:00)
[2022-06-30] MEDS ORDERED: Levothyroxine 25 MCG TABLET PO SCH (06:30)
== END 2022-06-29 16:15 | disposition home health service (06) ==
LOC: EMEROOARM 20:20 → 3ANU 20:20 → SUATTDRO 06-28 11:36 → 3ANU 06-28 12:39
PROVIDERS: ADMIT Internal Medicine; ATTEND Hospitalist